=== PATIENT | male | born 1970 | race Caucasian/White ===

== ENCOUNTER 2021-02-06 09:40 | Inpatient (IN) | payer OTHER ==
[~2021-02-06 09:40] MED LIST: PROPOFOL 200 MG/20 ML VIAL ONE; Rocuronium Bromide 10 MG/ML (10ML VIAL) ONE
[2021-02-06] MEDS ORDERED: Dexamethasone 10 MG/ML VIAL ONE (10:07)
[2021-02-06] MEDS ORDERED: Iopamidol-370 76% 500 ML 1 ML ONE (10:43)
[2021-02-06 11:07] LABS: #Lymphocytes 0.4 thou/uL (1.20-3.40); #Monocytes 0.1 thou/uL (0.11-0.59); #Neutrophils 3.5 thou/uL (1.40-6.50); %Basophils 0.6 % (0.0-1.0); %Lymphocytes 10.8 % (21.0-51.0); %Monocytes 2.8 % (0.0-10.0); %Neutrophils 85.8 % (42.0-75.0); Hemoglobin 13.8 g/dL (14.0-18.0); Large Platelets SLIGHT; MDiff Complete? YES; Mean Corpuscular HGB CONC 34.8 g/dL (32.0-36.0); Mean Corpuscular Hemoglobin 29.8 pg (27.0-31.0); Mean Corpuscular Volume 85.6 fL (78.0-98.0); Mean Platelet Volume 10.4 fL (7.4-10.4); Platelet Count 60 thou/uL (130-400); Platelet Morphology Comment Appears Decreased; RBC Distribution Width 12.5 % (11.5-14.5); RBC Morphology Normal; Red Blood Cell (RBC) Count 4.63 mill/uL (4.70-6.10); White Blood Cell (WBC) Count 4.1 thou/uL (4.8-10.8)
[2021-02-06 11:23] LABS: ALT (SGPT) 41 U/L (8-55); AST (SGOT) 100 U/L (5-34); Albumin 3.3 g/dL (3.5-5.0); Alkaline Phosphatase 72 U/L (40-110); Anion Gap 11 mmol/L (10-20); BUN (Urea Nitrogen) 16 mg/dL (8.9-20.6); Bilirubin, Total 0.8 mg/dL (0.2-1.2); Calc. Creatinine Clearance 0 mL/min (70-130); Calcium 9.2 mg/dL (7.8-10.44); Carbon Dioxide 26 mmol/L (22-29); Chloride 101 mmol/L (98-107); Globulin 3.3 g/dL (2.4-3.5); Glucose 111 mg/dL (70-105); Potassium 3.7 mmol/L (3.5-5.1); Protein, Total 6.6 g/dL (6.0-8.3); Sodium 134 mmol/L (136-145)
[2021-02-06 11:48] LABS: SARS-CoV-2 NAA Rapid Test DETECTED (NotDetected)
[2021-02-06] MEDS ORDERED: Benzonatate 100 MG CAP PO PRN (12:07)
[2021-02-06] MEDS ORDERED: Albuterol Sulfate 2.5 mg/3 ml Neb NEB PRN (12:08)
[2021-02-06] MEDS ORDERED: HYDROcodone/Acetaminophen 5/325 mg Tablet PO PRN ×2 (12:08)
[2021-02-06] MEDS ORDERED: Senokot S 8.6-50 MG TAB PO PRN (12:08)
[2021-02-06] MEDS: Sodium Chloride 0.9% 1,000 ML IV SCH (12:57)
[2021-02-06 14:52] LABS: CRP (Inflammatory) 16.45 mg/dL (= or < 0.5); Magnesium 1.7 mg/dL (1.6-2.6)
[2021-02-06 15:33] LABS: HBCM Index 0.18 S/CO (0-0.79); HBSAg Index 0.25 S/CO (0-0.99); Hep A IgM AB Non-Reactive (NonReactive); Hep A IgM S/CO 0.12 S/CO (0-0.79); Hep B Surf Ag Non-Reactive S/CO (NonReactive); Hep C IgG Ab Non-Reactive (NonReactive); Hep C Index 0.14 S/CO (0-0.79); Hepatitis B Core IgM Abs Non-Reactive (NonReactive)
[2021-02-06 15:59] LABS: Acetaminophen Less than 6.0 mcg/mL (10.0-30.0); Alcohol Less than 10 mg/dL (Less than 10); Salicylate Less than 8.0 mg/dL (15.0-30.0)
[2021-02-06 16:15] LABS: Ferritin 2155.94 ng/mL (22-322)
[2021-02-06] MEDS ORDERED: Enoxaparin Sodium 40 MG/0.4 ML SYRINGE SC SCH (21:00)
[2021-02-06] MEDS: Lorazepam 2 MG/ML VIAL SLOW IVP PRN (21:23)
[2021-02-06] MEDS: Acetaminophen 325 MG TAB PO PRN (22:47)
[2021-02-06 23:58] LABS: Actual Bicarbonate (HCO3a) 26.6 mEq/L (22-28); Base Excess (BEa) -0.2 mEq/L (-2.0 to +3.0); CO2 Tension 51.7 mmHg (35.0-45.0); Calcium, Ionized (arterial) 1.32 mmol/L (1.12-1.30); Carboxyhemoglobin (COHb) 0.8 gm% (0.0-3.0); Hemoglobin (Hb) 14.5 g/dL (14.0-18.0); pH, Arterial 7.33 (7.35-7.45)
[2021-02-07] LABS: ALV-art Gradient 607.675 mmHg (0-20); O2 Tension (PaO2), arterial 40.7 mmHg (80.0-100.0)
[2021-02-07] MEDS: Sodium Chloride 0.9% 1,000 ML IV SCH ×2 (00:58→14:01)
[2021-02-07] MEDS ORDERED: Morphine 4 MG/ML VIAL SLOW IVP SCH (02:15)
[2021-02-07] MEDS: Dexamethasone 10 MG/ML VIAL SLOW IVP SCH ×2 (02:19→14:01)
[2021-02-07 02:44] LABS: #Lymphocytes 0.4 thou/uL (1.20-3.40); #Monocytes 0.1 thou/uL (0.11-0.59); #Neutrophils 4.7 thou/uL (1.40-6.50); %Lymphocytes 6.6 % (21.0-51.0); %Monocytes 2.8 % (0.0-10.0); %Neutrophils 90.6 % (42.0-75.0); Hemoglobin 14.1 g/dL (14.0-18.0); Mean Corpuscular HGB CONC 34.7 g/dL (32.0-36.0); Mean Corpuscular Hemoglobin 29.8 pg (27.0-31.0); Mean Corpuscular Volume 85.9 fL (78.0-98.0); Mean Platelet Volume 10.1 fL (7.4-10.4); Platelet Count 68 thou/uL (130-400); RBC Distribution Width 12.7 % (11.5-14.5); Red Blood Cell (RBC) Count 4.73 mill/uL (4.70-6.10); White Blood Cell (WBC) Count 5.2 thou/uL (4.8-10.8)
[2021-02-07 04:24] LABS: BUN (Urea Nitrogen) 19 mg/dL (8.9-20.6); Calc. Creatinine Clearance 128 mL/min (70-130); Carbon Dioxide 19 mmol/L (22-29); Chloride 107 mmol/L (98-107); Glucose 146 mg/dL (70-105); Potassium 4.2 mmol/L (3.5-5.1); Sodium 138 mmol/L (136-145)
[2021-02-07 04:50] LABS: Anion Gap 17 mmol/L (10-20)
[2021-02-07] MEDS: BARICITINIB 2 MG TAB PO SCH (08:21)
[2021-02-07] MEDS: Lorazepam 2 MG/ML VIAL SLOW IVP PRN ×2 (08:21→10:42)
[2021-02-07] MEDS: Zinc Sulfate 220 MG CAP PO SCH (08:21)
[2021-02-07] MEDS: Ascorbic Acid 500 mg Chewable Tablet PO SCH (08:22)
[2021-02-07] MEDS ORDERED: Dexamethasone 10 MG/ML VIAL SLOW IVP SCH (09:00)
[2021-02-07] MEDS ORDERED: Propofol 1,000 MG/100 ML VIAL IV ONE (11:16)
[2021-02-07] MEDS ORDERED: Fentanyl CADD 100 ML ONE (11:17)
[2021-02-07] MEDS: Fentanyl CADD 100 ML IV SCH (11:24)
[2021-02-07] MEDS: Propofol 1,000 MG/100 ML VIAL IV PRN ×3 (11:24→20:08)
[2021-02-07] MEDS ORDERED: Propofol BOLUS 1,000 MG/100 ML VIAL IV PRN (11:30)
[2021-02-07] MEDS ORDERED: Morphine 2 MG/ML VIAL SLOW IVP PRN (11:30)
[2021-02-07] MEDS ORDERED: Fentanyl BOLUS 250 ML IVPB PRN (11:30)
[2021-02-07 12:19] LABS: Bilirubin Negative (Negative); Blood, Urine 2+ (Negative); Clarity Clear (Clear); Glucose, Urine (Dipstick) Normal (Negative); Ketone, Urine Negative (Negative); Leukocyte Negative Leu/uL (Negative); Nitrite Negative (Negative); Protein, Urine (Dipstick) 70 mg/dL (Neg-Trace); RBC/HPF 0-3 HPF (0-3); Specific Gravity, Urine 1.032 (1.002-1.036); Squamous Epithelial 0-3 HPF (0-3); Urobilinogen Normal mg/dL (Less than 2)
[2021-02-07 12:20] LABS: Bacteria/HPF 1+ HPF (None Seen)
[2021-02-07 12:22] LABS: Amphetamine Not Detected (NotDetected); Barbiturates Screen Not Detected (NotDetected); Benzodiazepine Screen Detected (NotDetected); Cocaine Metabolite Screen Not Detected (NotDetected); Methadone Not Detected (NotDetected); Methamphetamine Not Detected (NotDetected); Opiate Screen Detected (NotDetected); Oxycodone Screen Not Detected (NotDetected); Phencyclidine (PCP) Not Detected (NotDetected); THC/Cannabinoid Screen Not Detected (NotDetected); Tricyclic Screen Not Detected (NotDetected); Urine Culture Reflex Yes Yes
[2021-02-07 12:27] LABS: Actual Bicarbonate (HCO3a) 24.4 mEq/L (22-28); Base Excess (BEa) 0.8 mEq/L (-2.0 to +3.0); Calcium, Ionized (arterial) 1.28 mmol/L (1.12-1.30); Carboxyhemoglobin (COHb) 0.6 gm% (0.0-3.0); Hemoglobin (Hb) 13.5 g/dL (14.0-18.0); O2 Tension (PaO2), arterial 51.4 mmHg (80.0-100.0); Potassium - ABG Lab 4.21 mmol/L (3.70-5.30); Puncture Site RBA; pH, Arterial 7.45 (7.35-7.45)
[2021-02-07] MEDS ORDERED: Rocuronium Bromide 50 MG/5 ML VIAL IVP SCH (12:30)
[2021-02-07] MEDS ORDERED: PROPOFOL 200 MG/20 ML VIAL IV SCH (12:30)
[2021-02-07] MEDS: Vecuronium 10 MG VIAL IV PRN (13:48)
[2021-02-07] MEDS: Pantoprazole 40 MG VIAL IVP SCH (20:08)
[2021-02-07] MEDS: methylPREDNISolone Sod Succ/PF 125 MG in Sodium Chloride 0.9% 250 ML 250 ML IVPB SCH (20:17)
[2021-02-07] MEDS: Enoxaparin Sodium 60 MG/0.6 ML SYRINGE SC SCH (22:20)
[2021-02-08] MEDS: Vecuronium 10 MG VIAL IV PRN ×9 (01:49→23:40)
[2021-02-08 06:40] LABS: ALT (SGPT) 32 U/L (8-55); AST (SGOT) 82 U/L (5-34); Albumin 2.8 g/dL (3.5-5.0); Alkaline Phosphatase 55 U/L (40-110); Anion Gap 13 mmol/L (10-20); BUN (Urea Nitrogen) 27 mg/dL (8.9-20.6); Bilirubin, Total 0.6 mg/dL (0.2-1.2); CRP (Inflammatory) 10.82 mg/dL (= or < 0.5); Calc. Creatinine Clearance 119 mL/min (70-130); Calcium 9.1 mg/dL (7.8-10.44); Carbon Dioxide 22 mmol/L (22-29); Chloride 110 mmol/L (98-107); Globulin 2.5 g/dL (2.4-3.5); Glucose 144 mg/dL (70-105); Potassium 4.3 mmol/L (3.5-5.1); Protein, Total 5.3 g/dL (6.0-8.3); Sodium 141 mmol/L (136-145)
[2021-02-08] MEDS ORDERED: Fentanyl CADD 100 ML ONE (07:14)
[2021-02-08] MEDS: Propofol 1,000 MG/100 ML VIAL IV PRN ×4 (07:18→21:47)
[2021-02-08] MEDS: Fentanyl CADD 100 ML IV SCH (07:18)
[2021-02-08 07:54] LABS: Band 21 % (5-11); Hemoglobin 11.8 g/dL (14.0-18.0); Lymphocytes 11 % (21-51); MDiff Complete? YES; Mean Corpuscular Hemoglobin 29.4 pg (27.0-31.0); Mean Corpuscular Volume 86.5 fL (78.0-98.0); Monocytes 3 % (0-10); Neutrophil 65 % (42-75); Platelet Count 80 thou/uL (130-400); Platelet Morphology Comment Appears Decreased; RBC Distribution Width 12.7 % (11.5-14.5); Red Blood Cell (RBC) Count 4.03 mill/uL (4.70-6.10); White Blood Cell (WBC) Count 4.2 thou/uL (4.8-10.8)
[2021-02-08] MEDS: Zinc Sulfate 220 MG CAP PO SCH (08:36)
[2021-02-08] MEDS: Enoxaparin Sodium 60 MG/0.6 ML SYRINGE SC SCH (08:36)
[2021-02-08] MEDS: BARICITINIB 2 MG TAB PO SCH (08:36)
[2021-02-08] MEDS: Ascorbic Acid 500 mg Chewable Tablet PO SCH (08:37)
[2021-02-08] MEDS: Pantoprazole 40 MG VIAL IVP SCH ×2 (08:39→21:27)
[2021-02-08] MEDS ORDERED: FLU VACC QS2021-22(6MOS UP)/PF 60 MCG/0.5 ML SYRINGE IM ONE (09:00)
[2021-02-08] MEDS: methylPREDNISolone Sod Succ/PF 125 MG in Sodium Chloride 0.9% 250 ML 250 ML IVPB SCH (19:17)
[2021-02-08] MEDS: Lorazepam 2 MG/ML VIAL SLOW IVP PRN (23:40)
[2021-02-09] MEDS: Vecuronium 10 MG VIAL IV PRN ×6 (01:18→20:47)
[2021-02-09] MEDS: Propofol 1,000 MG/100 ML VIAL IV PRN ×4 (01:54→20:48)
[2021-02-09] MEDS ORDERED: Fentanyl CADD 100 ML ONE ×2 (02:20→20:30)
[2021-02-09] MEDS: Fentanyl CADD 100 ML IV SCH ×2 (02:23→20:48)
[2021-02-09 04:33] LABS: Hemoglobin 11.1 g/dL (14.0-18.0); Mean Corpuscular HGB CONC 34.3 g/dL (32.0-36.0); Mean Corpuscular Hemoglobin 29.7 pg (27.0-31.0); Mean Corpuscular Volume 86.7 fL (78.0-98.0); Mean Platelet Volume 9.4 fL (7.4-10.4); Platelet Count 95 thou/uL (130-400); RBC Distribution Width 12.5 % (11.5-14.5); Red Blood Cell (RBC) Count 3.72 mill/uL (4.70-6.10); White Blood Cell (WBC) Count 3.3 thou/uL (4.8-10.8)
[2021-02-09 04:51] LABS: ALT (SGPT) 28 U/L (8-55); AST (SGOT) 59 U/L (5-34); Albumin 2.8 g/dL (3.5-5.0); Alkaline Phosphatase 51 U/L (40-110); Anion Gap 13 mmol/L (10-20); BUN (Urea Nitrogen) 33 mg/dL (8.9-20.6); Bilirubin, Total 0.5 mg/dL (0.2-1.2); CRP (Inflammatory) 5.62 mg/dL (= or < 0.5); Calc. Creatinine Clearance 115 mL/min (70-130); Calcium 8.9 mg/dL (7.8-10.44); Carbon Dioxide 25 mmol/L (22-29); Chloride 109 mmol/L (98-107); Globulin 2.5 g/dL (2.4-3.5); Glucose 160 mg/dL (70-105); Potassium 4.5 mmol/L (3.5-5.1); Protein, Total 5.3 g/dL (6.0-8.3); Sodium 142 mmol/L (136-145)
[2021-02-09 05:07] LABS: Band 10 % (5-11); Lymphocytes 7 % (21-51); MDiff Complete? YES; Monocytes 3 % (0-10); Neutrophil 80 % (42-75); Platelet Morphology Comment Appears Decreased
[2021-02-09 07:36] LABS: Actual Bicarbonate (HCO3a) 23.9 mEq/L (22-28); Base Excess (BEa) 0.1 mEq/L (-2.0 to +3.0); CO2 Tension 35.9 mmHg (35.0-45.0); Carboxyhemoglobin (COHb) 0.2 gm% (0.0-3.0); Hemoglobin (Hb) 11.3 g/dL (14.0-18.0); O2 Tension (PaO2), arterial 108.4 mmHg (80.0-100.0); Potassium - ABG Lab 4.31 mmol/L (3.70-5.30); pH, Arterial 7.44 (7.35-7.45)
[2021-02-09 07:38] LABS: ALV-art Gradient 203.225 mmHg (0-20); Puncture Site RBA
[2021-02-09] MEDS: Pantoprazole 40 MG VIAL IVP SCH ×2 (08:58→20:47)
[2021-02-09] MEDS: Zinc Sulfate 220 MG CAP PO SCH (08:58)
[2021-02-09] MEDS: Ascorbic Acid 500 mg Chewable Tablet PO SCH (08:58)
[2021-02-09] MEDS: BARICITINIB 2 MG TAB PO SCH (08:58)
[2021-02-09] MEDS ORDERED: Enoxaparin Sodium 60 MG/0.6 ML SYRINGE SC SCH (11:00)
[2021-02-09] MEDS ORDERED: Sterile Water 10 ML ONE (20:29)
[2021-02-09] MEDS: methylPREDNISolone Sod Succ/PF 125 MG in Sodium Chloride 0.9% 250 ML 250 ML IVPB SCH (20:46)
[2021-02-09] MEDS: Enoxaparin Sodium 60 MG/0.6 ML SYRINGE SC SCH (20:48)
[2021-02-10] MEDS: Vecuronium 10 MG VIAL IV PRN ×4 (01:24→12:11)
[2021-02-10] MEDS: Propofol 1,000 MG/100 ML VIAL IV PRN ×3 (03:50→17:57)
[2021-02-10] MEDS ORDERED: Sterile Water 10 ML ONE ×3 (03:52→11:52)
[2021-02-10 04:44] LABS: Hemoglobin 12.6 g/dL (14.0-18.0); Mean Corpuscular HGB CONC 34.1 g/dL (32.0-36.0); Mean Corpuscular Hemoglobin 29.1 pg (27.0-31.0); Mean Corpuscular Volume 85.3 fL (78.0-98.0); Mean Platelet Volume 9.6 fL (7.4-10.4); Platelet Count 119 thou/uL (130-400); RBC Distribution Width 12.3 % (11.5-14.5); Red Blood Cell (RBC) Count 4.33 mill/uL (4.70-6.10); White Blood Cell (WBC) Count 3.5 thou/uL (4.8-10.8)
[2021-02-10 05:07] LABS: ALT (SGPT) 32 U/L (8-55); AST (SGOT) 55 U/L (5-34); Albumin 3.1 g/dL (3.5-5.0); Alkaline Phosphatase 58 U/L (40-110); Anion Gap 14 mmol/L (10-20); BUN (Urea Nitrogen) 32 mg/dL (8.9-20.6); Bilirubin, Total 0.8 mg/dL (0.2-1.2); CRP (Inflammatory) 3.02 mg/dL (= or < 0.5); Calc. Creatinine Clearance 134 mL/min (70-130); Calcium 9.2 mg/dL (7.8-10.44); Carbon Dioxide 25 mmol/L (22-29); Chloride 109 mmol/L (98-107); Globulin 3.1 g/dL (2.4-3.5); Glucose 157 mg/dL (70-105); Potassium 4.7 mmol/L (3.5-5.1); Protein, Total 6.2 g/dL (6.0-8.3); Sodium 143 mmol/L (136-145)
[2021-02-10 05:20] LABS: Band 14 % (5-11); Lymphocytes 10 % (21-51); MDiff Complete? YES; Monocytes 2 % (0-10); Neutrophil 74 % (42-75); Platelet Morphology Comment Appears Decreased
[2021-02-10 08:39] LABS: Actual Bicarbonate (HCO3a) 22.1 mEq/L (22-28); Base Excess (BEa) -1.5 mEq/L (-2.0 to +3.0); CO2 Tension 33.9 mmHg (35.0-45.0); Carboxyhemoglobin (COHb) 0.3 gm% (0.0-3.0); Hemoglobin (Hb) 13.6 g/dL (14.0-18.0); O2 Tension (PaO2), arterial 74.7 mmHg (80.0-100.0); pH, Arterial 7.43 (7.35-7.45)
[2021-02-10 08:47] LABS: ALV-art Gradient 168.125 mmHg (0-20); Puncture Site LRA
[2021-02-10] MEDS: Enoxaparin Sodium 60 MG/0.6 ML SYRINGE SC SCH ×2 (09:05→20:07)
[2021-02-10] MEDS: Pantoprazole 40 MG VIAL IVP SCH ×2 (09:06→20:07)
[2021-02-10] MEDS: BARICITINIB 2 MG TAB PO SCH (09:06)
[2021-02-10] MEDS: Zinc Sulfate 220 MG CAP PO SCH (09:06)
[2021-02-10] MEDS: Ascorbic Acid 500 mg Chewable Tablet PO SCH (09:06)
[2021-02-10] MEDS: Lorazepam 2 MG/ML VIAL SLOW IVP PRN ×3 (10:21→19:45)
[2021-02-10] MEDS ORDERED: Fentanyl CADD 100 ML ONE (16:07)
[2021-02-10] MEDS: Fentanyl CADD 100 ML IV SCH (16:12)
[2021-02-10] MEDS: methylPREDNISolone Sod Succ/PF 125 MG in Sodium Chloride 0.9% 250 ML 250 ML IVPB SCH (19:16)
[2021-02-11] MEDS: Propofol 1,000 MG/100 ML VIAL IV PRN ×4 (00:08→21:52)
[2021-02-11] MEDS ORDERED: Fentanyl CADD 100 ML ONE ×3 (03:34→23:36)
[2021-02-11] MEDS: Fentanyl CADD 100 ML IV SCH ×3 (03:45→23:42)
[2021-02-11 04:51] LABS: Hemoglobin 11.8 g/dL (14.0-18.0); Mean Corpuscular HGB CONC 34.3 g/dL (32.0-36.0); Mean Corpuscular Hemoglobin 29.9 pg (27.0-31.0); Mean Platelet Volume 8.9 fL (7.4-10.4); Platelet Count 135 thou/uL (130-400); RBC Distribution Width 12.3 % (11.5-14.5); Red Blood Cell (RBC) Count 3.94 mill/uL (4.70-6.10); White Blood Cell (WBC) Count 5.1 thou/uL (4.8-10.8)
[2021-02-11 05:02] LABS: Lactic Acid 1.4 mmol/L (0.5-2.2)
[2021-02-11 05:03] LABS: Phosphorus 3.5 mg/dL (2.3-4.7)
[2021-02-11 05:04] LABS: ALT (SGPT) 40 U/L (8-55); AST (SGOT) 48 U/L (5-34); Albumin 2.9 g/dL (3.5-5.0); Alkaline Phosphatase 57 U/L (40-110); Anion Gap 10 mmol/L (10-20); BUN (Urea Nitrogen) 32 mg/dL (8.9-20.6); Bilirubin, Total 0.7 mg/dL (0.2-1.2); Calc. Creatinine Clearance 138 mL/min (70-130); Calcium 9.3 mg/dL (7.8-10.44); Carbon Dioxide 27 mmol/L (22-29); Chloride 111 mmol/L (98-107); Globulin 2.5 g/dL (2.4-3.5); Glucose 145 mg/dL (70-105); Magnesium 2.5 mg/dL (1.6-2.6); Potassium 4.9 mmol/L (3.5-5.1); Protein, Total 5.4 g/dL (6.0-8.3); Sodium 143 mmol/L (136-145)
[2021-02-11] MEDS: Lorazepam 2 MG/ML VIAL SLOW IVP PRN ×2 (05:33→19:35)
[2021-02-11 05:36] LABS: Band 9 % (5-11); Lymphocytes 6 % (21-51); MDiff Complete? YES; Monocytes 5 % (0-10); Neutrophil 80 % (42-75)
[2021-02-11] MEDS ORDERED: Propofol 1,000 MG/100 ML VIAL IV ONE (07:54)
[2021-02-11 08:32] LABS: Actual Bicarbonate (HCO3a) 23.2 mEq/L (22-28); Base Excess (BEa) -1.4 mEq/L (-2.0 to +3.0); Calcium, Ionized (arterial) 1.32 mmol/L (1.12-1.30); Carboxyhemoglobin (COHb) 0.6 gm% (0.0-3.0); Hemoglobin (Hb) 12.5 g/dL (14.0-18.0); O2 Tension (PaO2), arterial 40.9 mmHg (80.0-100.0); Potassium - ABG Lab 5.07 mmol/L (3.70-5.30); pH, Arterial 7.39 (7.35-7.45)
[2021-02-11 08:33] LABS: Puncture Site RR
[2021-02-11] MEDS: Pantoprazole 40 MG VIAL IVP SCH ×2 (08:58→21:01)
[2021-02-11] MEDS: Zinc Sulfate 220 MG CAP PO SCH (08:58)
[2021-02-11] MEDS: Enoxaparin Sodium 60 MG/0.6 ML SYRINGE SC SCH ×2 (08:58→21:01)
[2021-02-11] MEDS: Ascorbic Acid 500 mg Chewable Tablet PO SCH (08:58)
[2021-02-11] MEDS: BARICITINIB 2 MG TAB PO SCH (08:58)
[2021-02-11] MEDS: levETIRAcetam in NS 500 MG in Premix Bag 1 BAG IVPB SCH (13:38)
[2021-02-11] MEDS: methylPREDNISolone Sod Succ/PF 125 MG in Sodium Chloride 0.9% 250 ML 250 ML IVPB SCH (19:05)
[2021-02-12] MEDS: levETIRAcetam in NS 500 MG in Premix Bag 1 BAG IVPB SCH ×2 (00:33→13:03)
[2021-02-12] MEDS: Propofol 1,000 MG/100 ML VIAL IV PRN ×6 (01:36→18:25)
[2021-02-12] MEDS: Lorazepam 2 MG/ML VIAL SLOW IVP PRN ×2 (02:11→08:15)
[2021-02-12 04:25] LABS: #Lymphocytes 0.4 thou/uL (1.20-3.40); #Monocytes 0.4 thou/uL (0.11-0.59); #Neutrophils 5.7 thou/uL (1.40-6.50); %Eosinophils 0.5 % (0.0-10.0); %Lymphocytes 5.3 % (21.0-51.0); %Monocytes 6.7 % (0.0-10.0); %Neutrophils 87.4 % (42.0-75.0); Hemoglobin 11.5 g/dL (14.0-18.0); Mean Corpuscular HGB CONC 33.9 g/dL (32.0-36.0); Mean Corpuscular Hemoglobin 29.5 pg (27.0-31.0); Mean Corpuscular Volume 86.8 fL (78.0-98.0); Mean Platelet Volume 9.1 fL (7.4-10.4); Platelet Count 154 thou/uL (130-400); RBC Distribution Width 12.4 % (11.5-14.5); Red Blood Cell (RBC) Count 3.91 mill/uL (4.70-6.10); White Blood Cell (WBC) Count 6.5 thou/uL (4.8-10.8)
[2021-02-12 04:50] LABS: Phosphorus 2.7 mg/dL (2.3-4.7)
[2021-02-12 04:51] LABS: ALT (SGPT) 62 U/L (8-55); AST (SGOT) 76 U/L (5-34); Albumin 2.8 g/dL (3.5-5.0); Alkaline Phosphatase 56 U/L (40-110); Anion Gap 11 mmol/L (10-20); BUN (Urea Nitrogen) 30 mg/dL (8.9-20.6); Bilirubin, Total 0.7 mg/dL (0.2-1.2); Calc. Creatinine Clearance 128 mL/min (70-130); Carbon Dioxide 25 mmol/L (22-29); Chloride 110 mmol/L (98-107); Globulin 2.5 g/dL (2.4-3.5); Glucose 133 mg/dL (70-105); Magnesium 2.5 mg/dL (1.6-2.6); Potassium 4.5 mmol/L (3.5-5.1); Protein, Total 5.3 g/dL (6.0-8.3); Sodium 141 mmol/L (136-145)
[2021-02-12 06:43] LABS: Actual Bicarbonate (HCO3a) 23.5 mEq/L (22-28); Base Excess (BEa) 0.7 mEq/L (-2.0 to +3.0); CO2 Tension 31.7 mmHg (35.0-45.0); Calcium, Ionized (arterial) 1.25 mmol/L (1.12-1.30); Carboxyhemoglobin (COHb) 0.3 gm% (0.0-3.0); Hemoglobin (Hb) 11.8 g/dL (14.0-18.0); O2 Tension (PaO2), arterial 61.8 mmHg (80.0-100.0); Potassium - ABG Lab 4.22 mmol/L (3.70-5.30); pH, Arterial 7.49 (7.35-7.45)
[2021-02-12 06:46] LABS: ALV-art Gradient 183.775 mmHg (0-20); Puncture Site RRA
[2021-02-12] MEDS: Zinc Sulfate 220 MG CAP PO SCH (08:15)
[2021-02-12] MEDS: BARICITINIB 2 MG TAB PO SCH (08:15)
[2021-02-12] MEDS: Ascorbic Acid 500 mg Chewable Tablet PO SCH (08:15)
[2021-02-12] MEDS: Pantoprazole 40 MG VIAL IVP SCH (08:15)
[2021-02-12] MEDS: Enoxaparin Sodium 60 MG/0.6 ML SYRINGE SC SCH ×2 (08:43→20:33)
[2021-02-12] MEDS ORDERED: Fentanyl CADD 100 ML ONE ×2 (08:57→18:21)
[2021-02-12] MEDS: Fentanyl CADD 100 ML IV SCH ×2 (08:59→18:25)
[2021-02-12] MEDS ORDERED: FLU VACC QS2021-22(6MOS UP)/PF 60 MCG/0.5 ML SYRINGE IM ONE (09:00)
[2021-02-12] MEDS: methylPREDNISolone Sod Succ/PF 125 MG in Sodium Chloride 0.9% 250 ML 250 ML IVPB SCH (18:25)
[2021-02-12] MEDS: Pantoprazole 40 MG GRANULES PACKET PER TUBE SCH (20:33)
[2021-02-12] MEDS: Vecuronium 10 MG VIAL IV PRN (22:02)
[2021-02-13] MEDS: levETIRAcetam in NS 500 MG in Premix Bag 1 BAG IVPB SCH ×2 (00:53→13:46)
[2021-02-13] MEDS: Propofol 1,000 MG/100 ML VIAL IV PRN ×6 (00:53→21:21)
[2021-02-13] MEDS: Vecuronium 10 MG VIAL IV PRN ×7 (00:53→22:02)
[2021-02-13] MEDS ORDERED: Fentanyl CADD 100 ML ONE ×2 (04:04→14:18)
[2021-02-13] MEDS: Fentanyl CADD 100 ML IV SCH ×2 (04:08→14:22)
[2021-02-13 05:14] LABS: #Lymphocytes 0.4 thou/uL (1.20-3.40); #Monocytes 0.4 thou/uL (0.11-0.59); #Neutrophils 6.6 thou/uL (1.40-6.50); %Eosinophils 0.6 % (0.0-10.0); %Lymphocytes 5.1 % (21.0-51.0); %Monocytes 5.7 % (0.0-10.0); %Neutrophils 88.6 % (42.0-75.0); Mean Corpuscular HGB CONC 33.8 g/dL (32.0-36.0); Mean Corpuscular Hemoglobin 29.5 pg (27.0-31.0); Mean Corpuscular Volume 87.3 fL (78.0-98.0); Platelet Count 166 thou/uL (130-400); RBC Distribution Width 12.4 % (11.5-14.5); Red Blood Cell (RBC) Count 4.08 mill/uL (4.70-6.10); White Blood Cell (WBC) Count 7.4 thou/uL (4.8-10.8)
[2021-02-13 06:08] LABS: ALT (SGPT) 80 U/L (8-55); AST (SGOT) 63 U/L (5-34); Albumin 2.9 g/dL (3.5-5.0); Alkaline Phosphatase 60 U/L (40-110); Anion Gap 12 mmol/L (10-20); BUN (Urea Nitrogen) 23 mg/dL (8.9-20.6); Bilirubin, Total 0.6 mg/dL (0.2-1.2); Calc. Creatinine Clearance 155 mL/min (70-130); Carbon Dioxide 26 mmol/L (22-29); Chloride 105 mmol/L (98-107); Globulin 2.6 g/dL (2.4-3.5); Glucose 133 mg/dL (70-105); Magnesium 2.7 mg/dL (1.6-2.6); Phosphorus 3.9 mg/dL (2.3-4.7); Potassium 4.7 mmol/L (3.5-5.1); Protein, Total 5.5 g/dL (6.0-8.3); Sodium 138 mmol/L (136-145)
[2021-02-13 07:42] LABS: Actual Bicarbonate (HCO3a) 28.3 mEq/L (22-28); Base Excess (BEa) 1.3 mEq/L (-2.0 to +3.0); CO2 Tension 55.2 mmHg (35.0-45.0); Calcium, Ionized (arterial) 1.28 mmol/L (1.12-1.30); Carboxyhemoglobin (COHb) 0.1 gm% (0.0-3.0); Hemoglobin (Hb) 12.3 g/dL (14.0-18.0); O2 Tension (PaO2), arterial 84.7 mmHg (80.0-100.0); Potassium - ABG Lab 4.72 mmol/L (3.70-5.30); pH, Arterial 7.33 (7.35-7.45)
[2021-02-13 07:43] LABS: Puncture Site RRA
[2021-02-13] MEDS: BARICITINIB 2 MG TAB PO SCH (08:12)
[2021-02-13] MEDS: Ascorbic Acid 500 mg Chewable Tablet PO SCH (08:12)
[2021-02-13] MEDS: Pantoprazole 40 MG GRANULES PACKET PER TUBE SCH ×2 (08:13→21:21)
[2021-02-13] MEDS: Enoxaparin Sodium 60 MG/0.6 ML SYRINGE SC SCH ×2 (08:13→21:21)
[2021-02-13] MEDS: Zinc Sulfate 220 MG CAP PO SCH (08:13)
[2021-02-13] MEDS: Lorazepam 2 MG/ML VIAL SLOW IVP PRN ×3 (08:15→14:49)
[2021-02-13] MEDS: Metoclopramide HCl 10 MG/2 ML VIAL IVP SCH ×3 (11:36→21:22)
[2021-02-13] MEDS: methylPREDNISolone Sod Succ/PF 125 MG in Sodium Chloride 0.9% 250 ML 250 ML IVPB SCH (18:10)
[2021-02-14] MEDS ORDERED: Fentanyl CADD 100 ML ONE ×3 (00:05→18:36)
[2021-02-14] MEDS: Fentanyl CADD 100 ML IV SCH ×3 (00:11→18:39)
[2021-02-14] MEDS: levETIRAcetam in NS 500 MG in Premix Bag 1 BAG IVPB SCH ×2 (00:11→13:32)
[2021-02-14] MEDS: Propofol 1,000 MG/100 ML VIAL IV PRN ×8 (01:08→20:49)
[2021-02-14] MEDS: Metoclopramide HCl 10 MG/2 ML VIAL IVP SCH ×4 (03:39→20:49)
[2021-02-14] MEDS: Vecuronium 10 MG VIAL IV PRN ×4 (03:58→08:30)
[2021-02-14 04:37] LABS: #Eosinphils 0.1 thou/uL (0.0-0.7); #Lymphocytes 0.3 thou/uL (1.20-3.40); #Monocytes 0.4 thou/uL (0.11-0.59); #Neutrophils 6.7 thou/uL (1.40-6.50); %Eosinophils 0.9 % (0.0-10.0); %Lymphocytes 4.5 % (21.0-51.0); %Monocytes 5.3 % (0.0-10.0); %Neutrophils 89.3 % (42.0-75.0); Hemoglobin 12.2 g/dL (14.0-18.0); Mean Corpuscular HGB CONC 35.3 g/dL (32.0-36.0); Mean Corpuscular Hemoglobin 30.1 pg (27.0-31.0); Mean Corpuscular Volume 85.2 fL (78.0-98.0); Mean Platelet Volume 9.1 fL (7.4-10.4); Platelet Count 186 thou/uL (130-400); RBC Distribution Width 12.2 % (11.5-14.5); Red Blood Cell (RBC) Count 4.04 mill/uL (4.70-6.10); White Blood Cell (WBC) Count 7.5 thou/uL (4.8-10.8)
[2021-02-14 04:45] LABS: ALT (SGPT) 68 U/L (8-55); AST (SGOT) 41 U/L (5-34); Albumin 2.8 g/dL (3.5-5.0); Alkaline Phosphatase 62 U/L (40-110); Anion Gap 12 mmol/L (10-20); BUN (Urea Nitrogen) 20 mg/dL (8.9-20.6); Bilirubin, Total 0.6 mg/dL (0.2-1.2); Calc. Creatinine Clearance 157 mL/min (70-130); Calcium 8.8 mg/dL (7.8-10.44); Carbon Dioxide 27 mmol/L (22-29); Chloride 102 mmol/L (98-107); Globulin 2.6 g/dL (2.4-3.5); Glucose 124 mg/dL (70-105); Magnesium 2.5 mg/dL (1.6-2.6); Phosphorus 2.4 mg/dL (2.3-4.7); Potassium 4.5 mmol/L (3.5-5.1); Protein, Total 5.4 g/dL (6.0-8.3); Sodium 136 mmol/L (136-145)
[2021-02-14 07:47] LABS: Actual Bicarbonate (HCO3a) 29.5 mEq/L (22-28); Base Excess (BEa) 5.3 mEq/L (-2.0 to +3.0); CO2 Tension 41.6 mmHg (35.0-45.0); Calcium, Ionized (arterial) 1.25 mmol/L (1.12-1.30); Carboxyhemoglobin (COHb) 0.3 gm% (0.0-3.0); Hemoglobin (Hb) 12.2 g/dL (14.0-18.0); O2 Tension (PaO2), arterial 62.9 mmHg (80.0-100.0); Potassium - ABG Lab 4.35 mmol/L (3.70-5.30); pH, Arterial 7.47 (7.35-7.45)
[2021-02-14 07:48] LABS: Puncture Site RRA
[2021-02-14] MEDS: Enoxaparin Sodium 60 MG/0.6 ML SYRINGE SC SCH ×2 (09:31→20:49)
[2021-02-14] MEDS: Ascorbic Acid 500 mg Chewable Tablet PO SCH (09:32)
[2021-02-14] MEDS: BARICITINIB 2 MG TAB PO SCH (09:32)
[2021-02-14] MEDS: Zinc Sulfate 220 MG CAP PO SCH (09:32)
[2021-02-14] MEDS: Pantoprazole 40 MG GRANULES PACKET PER TUBE SCH ×2 (09:32→20:49)
[2021-02-14] MEDS: Lorazepam 2 MG/ML VIAL SLOW IVP PRN ×2 (13:50→19:03)
[2021-02-14] MEDS: methylPREDNISolone Sod Succ/PF 125 MG in Sodium Chloride 0.9% 250 ML 250 ML IVPB SCH (16:29)
[2021-02-15] MEDS: Propofol 1,000 MG/100 ML VIAL IV PRN ×7 (00:26→21:13)
[2021-02-15] MEDS: levETIRAcetam in NS 500 MG in Premix Bag 1 BAG IVPB SCH ×2 (01:36→13:16)
[2021-02-15] MEDS: Metoclopramide HCl 10 MG/2 ML VIAL IVP SCH ×4 (02:45→21:09)
[2021-02-15 04:06] LABS: #Lymphocytes 0.3 thou/uL (1.20-3.40); #Monocytes 0.4 thou/uL (0.11-0.59); #Neutrophils 6.9 thou/uL (1.40-6.50); %Basophils 0.2 % (0.0-1.0); %Eosinophils 0.4 % (0.0-10.0); %Lymphocytes 3.9 % (21.0-51.0); %Monocytes 5.6 % (0.0-10.0); %Neutrophils 89.9 % (42.0-75.0); Hemoglobin 12.2 g/dL (14.0-18.0); Mean Corpuscular HGB CONC 34.1 g/dL (32.0-36.0); Mean Corpuscular Hemoglobin 29.7 pg (27.0-31.0); Mean Platelet Volume 9.3 fL (7.4-10.4); Platelet Count 177 thou/uL (130-400); RBC Distribution Width 12.4 % (11.5-14.5); Red Blood Cell (RBC) Count 4.09 mill/uL (4.70-6.10); White Blood Cell (WBC) Count 7.7 thou/uL (4.8-10.8)
[2021-02-15] MEDS ORDERED: Fentanyl CADD 100 ML ONE ×2 (04:25→14:31)
[2021-02-15] MEDS: Fentanyl CADD 100 ML IV SCH ×2 (04:28→14:35)
[2021-02-15 04:35] LABS: ALT (SGPT) 54 U/L (8-55); AST (SGOT) 34 U/L (5-34); Albumin 2.9 g/dL (3.5-5.0); Alkaline Phosphatase 61 U/L (40-110); Anion Gap 11 mmol/L (10-20); BUN (Urea Nitrogen) 22 mg/dL (8.9-20.6); Bilirubin, Total 0.5 mg/dL (0.2-1.2); Calc. Creatinine Clearance 157 mL/min (70-130); Carbon Dioxide 29 mmol/L (22-29); Chloride 102 mmol/L (98-107); Globulin 2.5 g/dL (2.4-3.5); Glucose 123 mg/dL (70-105); Magnesium 2.5 mg/dL (1.6-2.6); Potassium 4.5 mmol/L (3.5-5.1); Protein, Total 5.4 g/dL (6.0-8.3); Sodium 137 mmol/L (136-145)
[2021-02-15 05:02] LABS: Phosphorus 3.5 mg/dL (2.3-4.7)
[2021-02-15 07:28] LABS: Actual Bicarbonate (HCO3a) 28.2 mEq/L (22-28); Base Excess (BEa) 2.7 mEq/L (-2.0 to +3.0); Calcium, Ionized (arterial) 1.29 mmol/L (1.12-1.30); Carboxyhemoglobin (COHb) 0.4 gm% (0.0-3.0); Hemoglobin (Hb) 12.8 g/dL (14.0-18.0); O2 Tension (PaO2), arterial 72.2 mmHg (80.0-100.0); Potassium - ABG Lab 4.86 mmol/L (3.70-5.30)
[2021-02-15 07:36] LABS: Puncture Site RRA
[2021-02-15] MEDS: Zinc Sulfate 220 MG CAP PO SCH (09:58)
[2021-02-15] MEDS: Ascorbic Acid 500 mg Chewable Tablet PO SCH (09:59)
[2021-02-15] MEDS: BARICITINIB 2 MG TAB PO SCH (09:59)
[2021-02-15] MEDS: Enoxaparin Sodium 60 MG/0.6 ML SYRINGE SC SCH ×2 (09:59→21:08)
[2021-02-15] MEDS: Pantoprazole 40 MG GRANULES PACKET PER TUBE SCH ×2 (09:59→21:08)
[2021-02-15] MEDS: Lorazepam 2 MG/ML VIAL SLOW IVP PRN (14:35)
[2021-02-15] MEDS: methylPREDNISolone Sod Succ/PF 125 MG in Sodium Chloride 0.9% 250 ML 250 ML IVPB SCH (21:07)
[2021-02-16] MEDS: levETIRAcetam in NS 500 MG in Premix Bag 1 BAG IVPB SCH ×2 (00:29→11:52)
[2021-02-16] MEDS ORDERED: Fentanyl CADD 100 ML ONE ×3 (00:43→23:30)
[2021-02-16] MEDS: Fentanyl CADD 100 ML IV SCH ×2 (00:46→23:36)
[2021-02-16] MEDS: Propofol 1,000 MG/100 ML VIAL IV PRN ×7 (01:02→21:56)
[2021-02-16] MEDS: Lorazepam 2 MG/ML VIAL SLOW IVP PRN ×7 (01:02→21:56)
[2021-02-16] MEDS: Metoclopramide HCl 10 MG/2 ML VIAL IVP SCH ×4 (03:49→20:12)
[2021-02-16 05:06] LABS: #Lymphocytes 0.4 thou/uL (1.20-3.40); #Monocytes 0.7 thou/uL (0.11-0.59); #Neutrophils 9.7 thou/uL (1.40-6.50); %Eosinophils 0.4 % (0.0-10.0); %Lymphocytes 3.3 % (21.0-51.0); %Monocytes 6.8 % (0.0-10.0); %Neutrophils 89.6 % (42.0-75.0); Hemoglobin 11.9 g/dL (14.0-18.0); Mean Corpuscular Hemoglobin 30.2 pg (27.0-31.0); Mean Corpuscular Volume 86.3 fL (78.0-98.0); Mean Platelet Volume 9.2 fL (7.4-10.4); Platelet Count 186 thou/uL (130-400); RBC Distribution Width 12.3 % (11.5-14.5); Red Blood Cell (RBC) Count 3.92 mill/uL (4.70-6.10); White Blood Cell (WBC) Count 10.8 thou/uL (4.8-10.8)
[2021-02-16 05:23] LABS: Phosphorus 3.6 mg/dL (2.3-4.7)
[2021-02-16 05:29] LABS: ALT (SGPT) 48 U/L (8-55); AST (SGOT) 43 U/L (5-34); Albumin 2.8 g/dL (3.5-5.0); Alkaline Phosphatase 62 U/L (40-110); Anion Gap 9 mmol/L (10-20); BUN (Urea Nitrogen) 24 mg/dL (8.9-20.6); Bilirubin, Total 0.5 mg/dL (0.2-1.2); Calc. Creatinine Clearance 159 mL/min (70-130); Calcium 9.3 mg/dL (7.8-10.44); Carbon Dioxide 32 mmol/L (22-29); Chloride 103 mmol/L (98-107); Globulin 2.5 g/dL (2.4-3.5); Glucose 111 mg/dL (70-105); Magnesium 2.6 mg/dL (1.6-2.6); Potassium 4.9 mmol/L (3.5-5.1); Protein, Total 5.3 g/dL (6.0-8.3); Sodium 139 mmol/L (136-145)
[2021-02-16] MEDS: Pantoprazole 40 MG GRANULES PACKET PER TUBE SCH ×2 (07:27→20:13)
[2021-02-16] MEDS: BARICITINIB 2 MG TAB PO SCH (07:27)
[2021-02-16] MEDS: Ascorbic Acid 500 mg Chewable Tablet PO SCH (07:28)
[2021-02-16] MEDS: Zinc Sulfate 220 MG CAP PO SCH (07:28)
[2021-02-16] MEDS: Enoxaparin Sodium 60 MG/0.6 ML SYRINGE SC SCH ×2 (07:28→20:12)
[2021-02-16 07:50] LABS: Actual Bicarbonate (HCO3a) 29.9 mEq/L (22-28); Base Excess (BEa) 5.1 mEq/L (-2.0 to +3.0); CO2 Tension 44.8 mmHg (35.0-45.0); Calcium, Ionized (arterial) 1.24 mmol/L (1.12-1.30); Carboxyhemoglobin (COHb) 0.7 gm% (0.0-3.0); Hemoglobin (Hb) 12.7 g/dL (14.0-18.0); Potassium - ABG Lab 4.53 mmol/L (3.70-5.30); pH, Arterial 7.44 (7.35-7.45)
[2021-02-16 08:13] LABS: O2 Tension (PaO2), arterial 42.9 mmHg (80.0-100.0); Puncture Site RRA
[2021-02-16] MEDS: methylPREDNISolone Sod Succ/PF 125 MG in Sodium Chloride 0.9% 250 ML 250 ML IVPB SCH (18:13)
[2021-02-17] MEDS: Lorazepam 2 MG/ML VIAL SLOW IVP PRN ×5 (00:27→15:05)
[2021-02-17] MEDS ORDERED: Simethicone Chewable 80 MG TAB PO PRN (01:19)
[2021-02-17] MEDS: Propofol 1,000 MG/100 ML VIAL IV PRN ×5 (01:48→15:06)
[2021-02-17] MEDS: levETIRAcetam in NS 500 MG in Premix Bag 1 BAG IVPB SCH (02:07)
[2021-02-17] MEDS: Metoclopramide HCl 10 MG/2 ML VIAL IVP SCH ×4 (03:43→20:13)
[2021-02-17 04:12] LABS: #Lymphocytes 0.3 thou/uL (1.20-3.40); #Monocytes 0.4 thou/uL (0.11-0.59); #Neutrophils 9.4 thou/uL (1.40-6.50); %Eosinophils 0.3 % (0.0-10.0); %Lymphocytes 2.9 % (21.0-51.0); %Monocytes 4.2 % (0.0-10.0); %Neutrophils 92.6 % (42.0-75.0); Hemoglobin 11.7 g/dL (14.0-18.0); Mean Corpuscular HGB CONC 33.2 g/dL (32.0-36.0); Mean Corpuscular Hemoglobin 28.8 pg (27.0-31.0); Mean Corpuscular Volume 86.7 fL (78.0-98.0); Mean Platelet Volume 9.3 fL (7.4-10.4); Platelet Count 183 thou/uL (130-400); RBC Distribution Width 12.5 % (11.5-14.5); Red Blood Cell (RBC) Count 4.09 mill/uL (4.70-6.10); White Blood Cell (WBC) Count 10.1 thou/uL (4.8-10.8)
[2021-02-17 04:39] LABS: Anion Gap 12 mmol/L (10-20); BUN (Urea Nitrogen) 21 mg/dL (8.9-20.6); Calc. Creatinine Clearance 172 mL/min (70-130); Carbon Dioxide 29 mmol/L (22-29); Chloride 100 mmol/L (98-107); Glucose 119 mg/dL (70-105); Potassium 4.6 mmol/L (3.5-5.1); Sodium 136 mmol/L (136-145)
[2021-02-17 07:23] LABS: Actual Bicarbonate (HCO3a) 32.2 mEq/L (22-28); Base Excess (BEa) 8.9 mEq/L (-2.0 to +3.0); Calcium, Ionized (arterial) 1.24 mmol/L (1.12-1.30); Carboxyhemoglobin (COHb) 0.3 gm% (0.0-3.0); Hemoglobin (Hb) 12.4 g/dL (14.0-18.0); Potassium - ABG Lab 4.39 mmol/L (3.70-5.30); pH, Arterial 7.53 (7.35-7.45)
[2021-02-17 07:24] LABS: O2 Tension (PaO2), arterial 51.3 mmHg (80.0-100.0); Puncture Site RRA
[2021-02-17] MEDS: Zinc Sulfate 220 MG CAP PO SCH (07:33)
[2021-02-17] MEDS: Pantoprazole 40 MG GRANULES PACKET PER TUBE SCH ×2 (07:33→20:13)
[2021-02-17] MEDS: Enoxaparin Sodium 60 MG/0.6 ML SYRINGE SC SCH ×2 (07:33→20:13)
[2021-02-17] MEDS: BARICITINIB 2 MG TAB PO SCH (07:33)
[2021-02-17] MEDS: Ascorbic Acid 500 mg Chewable Tablet PO SCH (07:33)
[2021-02-17] MEDS ORDERED: Fentanyl CADD 100 ML ONE (11:09)
[2021-02-17] MEDS: Fentanyl CADD 100 ML IV SCH (11:11)
[2021-02-17] MEDS: levETIRAcetam 500 MG in Sodium Chloride 0.9% 100 ML IVPB SCH (12:45)
[2021-02-17] MEDS: methylPREDNISolone Sod Succ/PF 125 MG in Sodium Chloride 0.9% 250 ML 250 ML IVPB SCH (15:58)
[2021-02-18] MEDS ORDERED: Fentanyl CADD 100 ML ONE ×2 (00:33→23:51)
[2021-02-18] MEDS: Fentanyl CADD 100 ML IV SCH ×2 (00:39→23:59)
[2021-02-18] MEDS: Propofol 1,000 MG/100 ML VIAL IV PRN ×5 (01:17→17:35)
[2021-02-18] MEDS: levETIRAcetam 500 MG in Sodium Chloride 0.9% 100 ML IVPB SCH ×2 (01:30→11:22)
[2021-02-18] MEDS: Metoclopramide HCl 10 MG/2 ML VIAL IVP SCH ×4 (03:13→20:06)
[2021-02-18 03:54] LABS: #Lymphocytes 0.4 thou/uL (1.20-3.40); #Monocytes 0.6 thou/uL (0.11-0.59); #Neutrophils 8.6 thou/uL (1.40-6.50); %Basophils 0.2 % (0.0-1.0); %Eosinophils 0.3 % (0.0-10.0); %Lymphocytes 4.2 % (21.0-51.0); %Monocytes 5.7 % (0.0-10.0); %Neutrophils 89.7 % (42.0-75.0); Hemoglobin 12.8 g/dL (14.0-18.0); Mean Corpuscular Hemoglobin 29.5 pg (27.0-31.0); Mean Corpuscular Volume 86.9 fL (78.0-98.0); Mean Platelet Volume 9.6 fL (7.4-10.4); Platelet Count 174 thou/uL (130-400); RBC Distribution Width 12.7 % (11.5-14.5); Red Blood Cell (RBC) Count 4.33 mill/uL (4.70-6.10); White Blood Cell (WBC) Count 9.6 thou/uL (4.8-10.8)
[2021-02-18 04:19] LABS: Anion Gap 11 mmol/L (10-20); BUN (Urea Nitrogen) 22 mg/dL (8.9-20.6); Calc. Creatinine Clearance 0 mL/min (70-130); Calcium 9.2 mg/dL (7.8-10.44); Carbon Dioxide 29 mmol/L (22-29); Chloride 102 mmol/L (98-107); Glucose 132 mg/dL (70-105); Potassium 4.7 mmol/L (3.5-5.1); Sodium 137 mmol/L (136-145)
[2021-02-18 06:52] LABS: Base Excess (BEa) 3.8 mEq/L (-2.0 to +3.0); CO2 Tension 36.3 mmHg (35.0-45.0); Calcium, Ionized (arterial) 1.27 mmol/L (1.12-1.30); Carboxyhemoglobin (COHb) 0.1 gm% (0.0-3.0); Hemoglobin (Hb) 13.3 g/dL (14.0-18.0); O2 Tension (PaO2), arterial 70.2 mmHg (80.0-100.0); Potassium - ABG Lab 4.71 mmol/L (3.70-5.30); pH, Arterial 7.49 (7.35-7.45)
[2021-02-18 06:54] LABS: ALV-art Gradient 240.925 mmHg (0-20); Puncture Site RRA
[2021-02-18] MEDS: BARICITINIB 2 MG TAB PO SCH (07:18)
[2021-02-18] MEDS: Zinc Sulfate 220 MG CAP PO SCH (07:18)
[2021-02-18] MEDS: Ascorbic Acid 500 mg Chewable Tablet PO SCH (07:18)
[2021-02-18] MEDS: Pantoprazole 40 MG GRANULES PACKET PER TUBE SCH ×2 (07:18→20:06)
[2021-02-18] MEDS: Enoxaparin Sodium 60 MG/0.6 ML SYRINGE SC SCH ×2 (07:19→20:05)
[2021-02-18] MEDS: Lorazepam 2 MG/ML VIAL SLOW IVP PRN ×4 (07:22→17:35)
[2021-02-18] MEDS: methylPREDNISolone Sod Succ/PF 125 MG in Sodium Chloride 0.9% 250 ML 250 ML IVPB SCH (17:06)
[2021-02-19] MEDS: levETIRAcetam in NS 500 MG in Premix Bag 1 BAG IVPB SCH ×2 (00:05→14:13)
[2021-02-19] MEDS: Propofol 1,000 MG/100 ML VIAL IV PRN ×3 (02:40→16:10)
[2021-02-19] MEDS: Metoclopramide HCl 10 MG/2 ML VIAL IVP SCH ×4 (02:40→22:24)
[2021-02-19] MEDS: Dexmedetomidine 1,000 MCG in Sodium Chloride 0.9% 250 ML 240 ML IVPB SCH ×2 (03:15→13:45)
[2021-02-19 03:55] LABS: Anion Gap 14 mmol/L (10-20); BUN (Urea Nitrogen) 24 mg/dL (8.9-20.6); Calc. Creatinine Clearance 133 mL/min (70-130); Calcium 9.4 mg/dL (7.8-10.44); Carbon Dioxide 27 mmol/L (22-29); Chloride 100 mmol/L (98-107); Glucose 122 mg/dL (70-105); Potassium 4.6 mmol/L (3.5-5.1); Sodium 136 mmol/L (136-145)
[2021-02-19 04:06] LABS: #Eosinphils 0.1 thou/uL (0.0-0.7); #Lymphocytes 0.3 thou/uL (1.20-3.40); #Monocytes 0.7 thou/uL (0.11-0.59); #Neutrophils 9.1 thou/uL (1.40-6.50); %Basophils 0.1 % (0.0-1.0); %Eosinophils 0.5 % (0.0-10.0); %Lymphocytes 3.3 % (21.0-51.0); %Neutrophils 89.1 % (42.0-75.0); Hemoglobin 13.3 g/dL (14.0-18.0); Mean Corpuscular HGB CONC 33.8 g/dL (32.0-36.0); Mean Corpuscular Hemoglobin 29.4 pg (27.0-31.0); Mean Corpuscular Volume 86.8 fL (78.0-98.0); Mean Platelet Volume 9.8 fL (7.4-10.4); Platelet Count 176 thou/uL (130-400); RBC Distribution Width 12.8 % (11.5-14.5); Red Blood Cell (RBC) Count 4.54 mill/uL (4.70-6.10); White Blood Cell (WBC) Count 10.2 thou/uL (4.8-10.8)
[2021-02-19 07:00] LABS: Actual Bicarbonate (HCO3a) 29.1 mEq/L (22-28); Base Excess (BEa) 5.8 mEq/L (-2.0 to +3.0); CO2 Tension 37.7 mmHg (35.0-45.0); Calcium, Ionized (arterial) 1.25 mmol/L (1.12-1.30); Carboxyhemoglobin (COHb) 0.5 gm% (0.0-3.0); O2 Tension (PaO2), arterial 63.2 mmHg (80.0-100.0); Potassium - ABG Lab 4.47 mmol/L (3.70-5.30); pH, Arterial 7.51 (7.35-7.45)
[2021-02-19 07:03] LABS: ALV-art Gradient 174.875 mmHg (0-20); Puncture Site LRA
[2021-02-19] MEDS: Enoxaparin Sodium 60 MG/0.6 ML SYRINGE SC SCH ×2 (09:33→21:00)
[2021-02-19] MEDS: Pantoprazole 40 MG GRANULES PACKET PER TUBE SCH ×2 (09:33→21:00)
[2021-02-19] MEDS: BARICITINIB 2 MG TAB PO SCH (09:33)
[2021-02-19] MEDS: Ascorbic Acid 500 mg Chewable Tablet PO SCH (09:34)
[2021-02-19] MEDS: Zinc Sulfate 220 MG CAP PO SCH (09:34)
[2021-02-19] MEDS ORDERED: Polyethylene Glycol 3350 17 GM Packet PO SCH (10:15)
[2021-02-19] MEDS: Lorazepam 2 MG/ML VIAL SLOW IVP PRN ×2 (15:28→22:24)
[2021-02-19] MEDS: methylPREDNISolone Sod Succ/PF 125 MG in Sodium Chloride 0.9% 250 ML 250 ML IVPB SCH (20:59)
[2021-02-19] MEDS: Senokot S 8.6-50 MG TAB PO SCH (21:00)
[2021-02-20] MEDS: levETIRAcetam in NS 500 MG in Premix Bag 1 BAG IVPB SCH ×2 (01:00→12:47)
[2021-02-20] MEDS: Metoclopramide HCl 10 MG/2 ML VIAL IVP SCH ×4 (03:51→21:51)
[2021-02-20] MEDS: Propofol 1,000 MG/100 ML VIAL IV PRN ×3 (03:51→16:36)
[2021-02-20] MEDS: Dexmedetomidine 1,000 MCG in Sodium Chloride 0.9% 250 ML 240 ML IVPB SCH ×3 (04:18→20:47)
[2021-02-20 04:53] LABS: #Eosinphils 0.1 thou/uL (0.0-0.7); #Lymphocytes 0.5 thou/uL (1.20-3.40); #Monocytes 0.7 thou/uL (0.11-0.59); #Neutrophils 6.6 thou/uL (1.40-6.50); %Basophils 0.1 % (0.0-1.0); %Eosinophils 1.4 % (0.0-10.0); %Lymphocytes 6.6 % (21.0-51.0); %Monocytes 8.5 % (0.0-10.0); %Neutrophils 83.5 % (42.0-75.0); Hemoglobin 14.1 g/dL (14.0-18.0); Mean Corpuscular HGB CONC 32.7 g/dL (32.0-36.0); Mean Corpuscular Hemoglobin 28.3 pg (27.0-31.0); Mean Corpuscular Volume 86.5 fL (78.0-98.0); Platelet Count 158 thou/uL (130-400); RBC Distribution Width 12.8 % (11.5-14.5); Red Blood Cell (RBC) Count 4.97 mill/uL (4.70-6.10); White Blood Cell (WBC) Count 7.9 thou/uL (4.8-10.8)
[2021-02-20 05:16] LABS: Anion Gap 12 mmol/L (10-20); BUN (Urea Nitrogen) 21 mg/dL (8.9-20.6); Calc. Creatinine Clearance 138 mL/min (70-130); Calcium 9.7 mg/dL (7.8-10.44); Carbon Dioxide 29 mmol/L (22-29); Chloride 100 mmol/L (98-107); Glucose 124 mg/dL (70-105); Potassium 4.7 mmol/L (3.5-5.1); Sodium 136 mmol/L (136-145)
[2021-02-20 07:07] LABS: Actual Bicarbonate (HCO3a) 25.5 mEq/L (22-28); Base Excess (BEa) 2.6 mEq/L (-2.0 to +3.0); CO2 Tension 34.2 mmHg (35.0-45.0); Calcium, Ionized (arterial) 1.25 mmol/L (1.12-1.30); Carboxyhemoglobin (COHb) 0.5 gm% (0.0-3.0); Hemoglobin (Hb) 14.3 g/dL (14.0-18.0); O2 Tension (PaO2), arterial 64.1 mmHg (80.0-100.0); Potassium - ABG Lab 4.44 mmol/L (3.70-5.30); pH, Arterial 7.49 (7.35-7.45)
[2021-02-20 07:31] LABS: Puncture Site RRA
[2021-02-20] MEDS: Enoxaparin Sodium 60 MG/0.6 ML SYRINGE SC SCH ×2 (09:40→21:45)
[2021-02-20] MEDS: Polyethylene Glycol 3350 17 GM Packet PO SCH (09:40)
[2021-02-20] MEDS: BARICITINIB 2 MG TAB PO SCH (09:40)
[2021-02-20] MEDS: Zinc Sulfate 220 MG CAP PO SCH (09:41)
[2021-02-20] MEDS: Acetaminophen 325 MG TAB PO PRN (09:41)
[2021-02-20] MEDS: Pantoprazole 40 MG GRANULES PACKET PER TUBE SCH ×2 (09:41→21:47)
[2021-02-20] MEDS: Senokot S 8.6-50 MG TAB PO SCH ×2 (09:41→21:48)
[2021-02-20] MEDS: Ascorbic Acid 500 mg Chewable Tablet PO SCH (09:42)
[2021-02-20] MEDS ORDERED: fentaNYL 75 mcg/hour Patch TD SCH ×2 (09:45→22:00)
[2021-02-20] MEDS: Lorazepam 2 MG/ML VIAL SLOW IVP PRN (13:22)
[2021-02-20] MEDS ORDERED: Piperacillin/Tazobactam 3.375 GM in Sodium Chloride 0.9% 100 ML IVPB SCH ×2 (16:30→18:30)
[2021-02-20] MEDS: Acetaminophen 650 MG Suppository PR PRN (16:36)
[2021-02-20 17:14] LABS: Bilirubin Negative (Negative); Blood, Urine Negative (Negative); Clarity Clear (Clear); Glucose, Urine (Dipstick) Normal (Negative); Ketone, Urine Negative (Negative); Leukocyte Negative Leu/uL (Negative); Nitrite Negative (Negative); Protein, Urine (Dipstick) Negative (Neg-Trace); Specific Gravity, Urine 1.027 (1.002-1.036); Urobilinogen Normal mg/dL (Less than 2)
[2021-02-20] MEDS ORDERED: VANCOMYCIN 2 GRAM/400 ML BAG 2 GM in Premix Bag 1 BAG IVPB SCH (20:00)
[2021-02-20] MEDS: methylPREDNISolone Sod Succ/PF 125 MG in Sodium Chloride 0.9% 250 ML 250 ML IVPB SCH (21:50)
[2021-02-21] MEDS: Piperacillin/Tazobactam 3.375 GM in Sodium Chloride 0.9% 100 ML IVPB SCH ×3 (00:03→14:52)
[2021-02-21] MEDS: levETIRAcetam in NS 500 MG in Premix Bag 1 BAG IVPB SCH ×2 (00:03→12:27)
[2021-02-21] MEDS: Propofol 1,000 MG/100 ML VIAL IV PRN ×4 (00:31→19:40)
[2021-02-21] MEDS: Metoclopramide HCl 10 MG/2 ML VIAL IVP SCH ×4 (03:03→21:25)
[2021-02-21 03:44] LABS: #Basophils 0.1 thou/uL (0.0-0.2); #Eosinphils 0.1 thou/uL (0.0-0.7); #Lymphocytes 0.6 thou/uL (1.20-3.40); #Neutrophils 11.1 thou/uL (1.40-6.50); %Basophils 0.5 % (0.0-1.0); %Eosinophils 0.4 % (0.0-10.0); %Neutrophils 86.1 % (42.0-75.0); Hemoglobin 14.1 g/dL (14.0-18.0); Mean Corpuscular HGB CONC 35.5 g/dL (32.0-36.0); Mean Corpuscular Hemoglobin 30.7 pg (27.0-31.0); Mean Corpuscular Volume 86.3 fL (78.0-98.0); Mean Platelet Volume 9.8 fL (7.4-10.4); Platelet Count 144 thou/uL (130-400); RBC Distribution Width 12.8 % (11.5-14.5); Red Blood Cell (RBC) Count 4.61 mill/uL (4.70-6.10); White Blood Cell (WBC) Count 12.9 thou/uL (4.8-10.8)
[2021-02-21] MEDS: Dexmedetomidine 1,000 MCG in Sodium Chloride 0.9% 250 ML 240 ML IVPB SCH ×3 (03:55→20:50)
[2021-02-21 04:35] LABS: Phosphorus 3.6 mg/dL (2.3-4.7)
[2021-02-21 04:40] LABS: Anion Gap 13 mmol/L (10-20); BUN (Urea Nitrogen) 22 mg/dL (8.9-20.6); Calc. Creatinine Clearance 149 mL/min (70-130); Calcium 9.5 mg/dL (7.8-10.44); Carbon Dioxide 24 mmol/L (22-29); Chloride 103 mmol/L (98-107); Glucose 115 mg/dL (70-105); Magnesium 2.2 mg/dL (1.6-2.6); Potassium 4.4 mmol/L (3.5-5.1); Sodium 136 mmol/L (136-145)
[2021-02-21] MEDS: Acetaminophen 650 MG Suppository PR PRN ×2 (08:36→14:53)
[2021-02-21] MEDS ORDERED: Sulfameth/Trimethoprim DS 800-160mg TAB PO SCH (09:00)
[2021-02-21] MEDS ORDERED: Methylnaltrexone 12 MG/0.6 ML VIAL SC SCH (09:30)
[2021-02-21] MEDS: Enoxaparin Sodium 60 MG/0.6 ML SYRINGE SC SCH ×2 (09:59→21:25)
[2021-02-21] MEDS: Senokot S 8.6-50 MG TAB PO SCH ×2 (09:59→21:25)
[2021-02-21] MEDS: Polyethylene Glycol 3350 17 GM Packet PO SCH (09:59)
[2021-02-21] MEDS: Vancomycin 1.5 GRAM/300 ML BAG 1.5 GM in Premix Bag 1 BAG IVPB SCH ×2 (09:59→21:26)
[2021-02-21] MEDS: Ascorbic Acid 500 mg Chewable Tablet PO SCH (09:59)
[2021-02-21] MEDS: Pantoprazole 40 MG GRANULES PACKET PER TUBE SCH ×2 (09:59→21:25)
[2021-02-21] MEDS: Fentanyl 100 MCG/2 ML VIAL SLOW IVP PRN (09:59)
[2021-02-21] MEDS: Zinc Sulfate 220 MG CAP PO SCH (09:59)
[2021-02-21] MEDS: Lorazepam 2 MG/ML VIAL SLOW IVP PRN ×2 (10:01→14:53)
[2021-02-21] MEDS: methylPREDNISolone Sod Succ/PF 125 MG in Sodium Chloride 0.9% 250 ML 250 ML IVPB SCH (21:27)
[2021-02-22] MEDS: levETIRAcetam in NS 500 MG in Premix Bag 1 BAG IVPB SCH ×2 (00:42→12:07)
[2021-02-22] MEDS: Piperacillin/Tazobactam 3.375 GM in Sodium Chloride 0.9% 100 ML IVPB SCH ×4 (00:43→23:59)
[2021-02-22] MEDS: Propofol 1,000 MG/100 ML VIAL IV PRN ×4 (01:10→19:30)
[2021-02-22] MEDS: Dexmedetomidine 1,000 MCG in Sodium Chloride 0.9% 250 ML 240 ML IVPB SCH ×3 (03:27→19:51)
[2021-02-22] MEDS: Metoclopramide HCl 10 MG/2 ML VIAL IVP SCH ×4 (03:27→20:50)
[2021-02-22 04:09] LABS: #Eosinphils 0.1 thou/uL (0.0-0.7); #Lymphocytes 0.8 thou/uL (1.20-3.40); #Monocytes 0.9 thou/uL (0.11-0.59); #Neutrophils 8.9 thou/uL (1.40-6.50); %Basophils 0.4 % (0.0-1.0); %Eosinophils 1.2 % (0.0-10.0); %Lymphocytes 7.5 % (21.0-51.0); %Monocytes 8.5 % (0.0-10.0); %Neutrophils 82.4 % (42.0-75.0); Hemoglobin 13.6 g/dL (14.0-18.0); Mean Corpuscular HGB CONC 33.9 g/dL (32.0-36.0); Mean Corpuscular Hemoglobin 29.3 pg (27.0-31.0); Mean Corpuscular Volume 86.5 fL (78.0-98.0); Mean Platelet Volume 9.9 fL (7.4-10.4); Platelet Count 122 thou/uL (130-400); Red Blood Cell (RBC) Count 4.63 mill/uL (4.70-6.10); White Blood Cell (WBC) Count 10.8 thou/uL (4.8-10.8)
[2021-02-22 04:37] LABS: Anion Gap 15 mmol/L (10-20); BUN (Urea Nitrogen) 21 mg/dL (8.9-20.6); Calc. Creatinine Clearance 145 mL/min (70-130); Calcium 9.2 mg/dL (7.8-10.44); Carbon Dioxide 20 mmol/L (22-29); Chloride 105 mmol/L (98-107); Glucose 103 mg/dL (70-105); Potassium 4.1 mmol/L (3.5-5.1); Sodium 136 mmol/L (136-145)
[2021-02-22 07:52] LABS: Actual Bicarbonate (HCO3a) 21.9 mEq/L (22-28); Base Excess (BEa) -1.6 mEq/L (-2.0 to +3.0); Calcium, Ionized (arterial) 1.24 mmol/L (1.12-1.30); Carboxyhemoglobin (COHb) 0.3 gm% (0.0-3.0); Hemoglobin (Hb) 12.2 g/dL (14.0-18.0); O2 Tension (PaO2), arterial 70.3 mmHg (80.0-100.0); Potassium - ABG Lab 3.91 mmol/L (3.70-5.30); pH, Arterial 7.44 (7.35-7.45)
[2021-02-22 07:54] LABS: Puncture Site RRA
[2021-02-22] MEDS: Fentanyl 100 MCG/2 ML VIAL SLOW IVP PRN ×2 (07:54→12:06)
[2021-02-22] MEDS: Lorazepam 2 MG/ML VIAL SLOW IVP PRN ×3 (07:55→13:34)
[2021-02-22] MEDS: Enoxaparin Sodium 60 MG/0.6 ML SYRINGE SC SCH ×2 (07:55→20:50)
[2021-02-22] MEDS: Acetaminophen 650 MG Suppository PR PRN ×2 (07:56→12:06)
[2021-02-22 08:18] LABS: Vancomycin, Trough 8.5 ug/mL
[2021-02-22] MEDS ORDERED: Methylnaltrexone 12 MG/0.6 ML VIAL SC SCH (09:15)
[2021-02-22] MEDS: Polyethylene Glycol 3350 17 GM Packet PO SCH ×2 (09:38→11:23)
[2021-02-22] MEDS: Senokot S 8.6-50 MG TAB PO SCH ×3 (09:38→20:50)
[2021-02-22] MEDS: Ascorbic Acid 500 mg Chewable Tablet PO SCH (09:39)
[2021-02-22] MEDS: Vancomycin 1.5 GRAM/300 ML BAG 1.5 GM in Premix Bag 1 BAG IVPB SCH ×3 (09:39→16:47)
[2021-02-22] MEDS: Pantoprazole 40 MG GRANULES PACKET PER TUBE SCH (09:39)
[2021-02-22] MEDS: Zinc Sulfate 220 MG CAP PO SCH (09:39)
[2021-02-22] MEDS ORDERED: Pantoprazole 40 MG VIAL IVP SCH (10:00)
[2021-02-22] MEDS: Bisacodyl 10 MG SUPP PR PRN (10:04)
[2021-02-22] MEDS ORDERED: Iopamidol-370 76% 500 ML 1 ML ONE (13:33)
[2021-02-22] MEDS ORDERED: Morphine 4 MG/ML VIAL SLOW IVP PRN (13:45)
[2021-02-22] MEDS ORDERED: Fentanyl CADD 100 ML ONE (13:49)
[2021-02-22] MEDS: Fentanyl CADD 100 ML IV SCH (14:02)
[2021-02-22] MEDS: Micafungin 100 MG in Sodium Chloride 0.9% 100 ML IVPB SCH (16:46)
[2021-02-23] MEDS: levETIRAcetam in NS 500 MG in Premix Bag 1 BAG IVPB SCH ×2 (00:33→13:48)
[2021-02-23] MEDS: Propofol 1,000 MG/100 ML VIAL IV PRN ×4 (00:34→21:18)
[2021-02-23] MEDS: Vancomycin 1.5 GRAM/300 ML BAG 1.5 GM in Premix Bag 1 BAG IVPB SCH ×3 (01:48→17:46)
[2021-02-23] MEDS: fentaNYL 75 mcg/hour Patch TD SCH (01:49)
[2021-02-23] MEDS: Metoclopramide HCl 10 MG/2 ML VIAL IVP SCH ×4 (03:43→22:15)
[2021-02-23] MEDS: Dexmedetomidine 1,000 MCG in Sodium Chloride 0.9% 250 ML 240 ML IVPB SCH ×2 (03:44→13:39)
[2021-02-23 04:41] LABS: #Eosinphils 0.1 thou/uL (0.0-0.7); #Lymphocytes 0.7 thou/uL (1.20-3.40); #Monocytes 0.6 thou/uL (0.11-0.59); %Basophils 0.3 % (0.0-1.0); %Eosinophils 1.4 % (0.0-10.0); %Lymphocytes 8.7 % (21.0-51.0); %Neutrophils 82.6 % (42.0-75.0); Hemoglobin 11.7 g/dL (14.0-18.0); Mean Corpuscular HGB CONC 33.7 g/dL (32.0-36.0); Mean Corpuscular Hemoglobin 29.5 pg (27.0-31.0); Mean Corpuscular Volume 87.6 fL (78.0-98.0); Mean Platelet Volume 10.3 fL (7.4-10.4); Platelet Count 82 thou/uL (130-400); RBC Distribution Width 12.9 % (11.5-14.5); Red Blood Cell (RBC) Count 3.95 mill/uL (4.70-6.10); White Blood Cell (WBC) Count 8.5 thou/uL (4.8-10.8)
[2021-02-23 04:57] LABS: Anion Gap 12 mmol/L (10-20); BUN (Urea Nitrogen) 19 mg/dL (8.9-20.6); Calc. Creatinine Clearance 157 mL/min (70-130); Calcium 8.3 mg/dL (7.8-10.44); Carbon Dioxide 18 mmol/L (22-29); Chloride 108 mmol/L (98-107); Glucose 90 mg/dL (70-105); Potassium 3.9 mmol/L (3.5-5.1); Sodium 134 mmol/L (136-145)
[2021-02-23 04:58] LABS: ALT (SGPT) 53 U/L (8-55); AST (SGOT) 29 U/L (5-34); Albumin 2.5 g/dL (3.5-5.0); Alkaline Phosphatase 64 U/L (40-110); Bilirubin, Direct 0.3 mg/dL (0.1-0.3); Bilirubin, Total 0.5 mg/dL (0.2-1.2); Protein, Total 5.2 g/dL (6.0-8.3)
[2021-02-23] MEDS: Acetaminophen 650 MG Suppository PR PRN ×2 (05:18)
[2021-02-23 06:58] LABS: Actual Bicarbonate (HCO3a) 19.4 mEq/L (22-28); Base Excess (BEa) -5.3 mEq/L (-2.0 to +3.0); CO2 Tension 35.1 mmHg (35.0-45.0); Calcium, Ionized (arterial) 1.29 mmol/L (1.12-1.30); Carboxyhemoglobin (COHb) 0.2 gm% (0.0-3.0); O2 Tension (PaO2), arterial 66.3 mmHg (80.0-100.0); Potassium - ABG Lab 3.64 mmol/L (3.70-5.30); pH, Arterial 7.36 (7.35-7.45)
[2021-02-23 06:59] LABS: Puncture Site RRA
[2021-02-23 07:00] LABS: ALV-art Gradient 175.025 mmHg (0-20)
[2021-02-23] MEDS: Piperacillin/Tazobactam 3.375 GM in Sodium Chloride 0.9% 100 ML IVPB SCH ×2 (08:56→15:50)
[2021-02-23] MEDS: Enoxaparin Sodium 60 MG/0.6 ML SYRINGE SC SCH ×2 (08:58→21:51)
[2021-02-23] MEDS: methylPREDNISolone Sod Succ/PF 125 MG/2 ML VIAL IVP SCH (09:00)
[2021-02-23] MEDS: Senokot S 8.6-50 MG TAB PO SCH ×2 (09:01→21:50)
[2021-02-23] MEDS: Polyethylene Glycol 3350 17 GM Packet PO SCH (09:02)
[2021-02-23 09:48] LABS: Vancomycin, Trough 16.9 ug/mL
[2021-02-23] MEDS: Pantoprazole 40 MG VIAL IVP SCH (13:48)
[2021-02-23] MEDS: Micafungin 100 MG in Sodium Chloride 0.9% 100 ML IVPB SCH (16:49)
[2021-02-24] MEDS: Piperacillin/Tazobactam 3.375 GM in Sodium Chloride 0.9% 100 ML IVPB SCH ×4 (00:41→23:11)
[2021-02-24] MEDS: levETIRAcetam in NS 500 MG in Premix Bag 1 BAG IVPB SCH ×2 (00:41→12:35)
[2021-02-24] MEDS: Vancomycin 1.5 GRAM/300 ML BAG 1.5 GM in Premix Bag 1 BAG IVPB SCH ×3 (01:51→17:25)
[2021-02-24] MEDS: Metoclopramide HCl 10 MG/2 ML VIAL IVP SCH ×4 (02:53→21:11)
[2021-02-24] MEDS: Propofol 1,000 MG/100 ML VIAL IV PRN (03:37)
[2021-02-24 04:30] LABS: #Eosinphils 0.1 thou/uL (0.0-0.7); #Lymphocytes 0.7 thou/uL (1.20-3.40); #Monocytes 0.4 thou/uL (0.11-0.59); #Neutrophils 7.1 thou/uL (1.40-6.50); %Basophils 0.4 % (0.0-1.0); %Eosinophils 1.3 % (0.0-10.0); %Lymphocytes 8.3 % (21.0-51.0); %Monocytes 5.2 % (0.0-10.0); %Neutrophils 84.8 % (42.0-75.0); Mean Corpuscular HGB CONC 34.4 g/dL (32.0-36.0); Mean Corpuscular Hemoglobin 30.7 pg (27.0-31.0); Mean Platelet Volume 9.9 fL (7.4-10.4); Platelet Count 86 thou/uL (130-400); RBC Distribution Width 13.1 % (11.5-14.5); Red Blood Cell (RBC) Count 3.58 mill/uL (4.70-6.10); White Blood Cell (WBC) Count 8.4 thou/uL (4.8-10.8)
[2021-02-24] MEDS ORDERED: Fentanyl CADD 100 ML ONE (04:38)
[2021-02-24 04:40] LABS: Anion Gap 13 mmol/L (10-20); BUN (Urea Nitrogen) 15 mg/dL (8.9-20.6); Calc. Creatinine Clearance 185 mL/min (70-130); Calcium 8.8 mg/dL (7.8-10.44); Carbon Dioxide 19 mmol/L (22-29); Chloride 108 mmol/L (98-107); Glucose 79 mg/dL (70-105); Potassium 3.8 mmol/L (3.5-5.1); Sodium 136 mmol/L (136-145)
[2021-02-24] MEDS: Dexmedetomidine 1,000 MCG in Sodium Chloride 0.9% 250 ML 240 ML IVPB SCH ×3 (04:42→21:03)
[2021-02-24] MEDS: Fentanyl CADD 100 ML IV SCH (04:43)
[2021-02-24 08:24] LABS: Actual Bicarbonate (HCO3a) 18.6 mEq/L (22-28); Base Excess (BEa) -7.1 mEq/L (-2.0 to +3.0); CO2 Tension 37.8 mmHg (35.0-45.0); Calcium, Ionized (arterial) 1.34 mmol/L (1.12-1.30); Carboxyhemoglobin (COHb) 0.4 gm% (0.0-3.0); Hemoglobin (Hb) 12.4 g/dL (14.0-18.0); Potassium - ABG Lab 3.86 mmol/L (3.70-5.30); pH, Arterial 7.31 (7.35-7.45)
[2021-02-24] MEDS: methylPREDNISolone Sod Succ/PF 125 MG/2 ML VIAL IVP SCH (08:25)
[2021-02-24 08:26] LABS: O2 Tension (PaO2), arterial 55.8 mmHg (80.0-100.0)
[2021-02-24 08:27] LABS: Puncture Site RRA
[2021-02-24] MEDS: Polyethylene Glycol 3350 17 GM Packet PO SCH (08:29)
[2021-02-24] MEDS: Senokot S 8.6-50 MG TAB PO SCH ×2 (08:29→21:12)
[2021-02-24] MEDS: Enoxaparin Sodium 60 MG/0.6 ML SYRINGE SC SCH ×2 (09:30→21:02)
[2021-02-24] MEDS: Lorazepam 2 MG/ML VIAL SLOW IVP PRN ×3 (09:45→22:24)
[2021-02-24] MEDS: Pantoprazole 40 MG VIAL IVP SCH (10:10)
[2021-02-24] MEDS: Acetaminophen 650 MG Suppository PR PRN (12:28)
[2021-02-24] MEDS: Micafungin 100 MG in Sodium Chloride 0.9% 100 ML IVPB SCH (15:38)
[2021-02-24] MEDS: Bisacodyl 10 MG SUPP PR PRN (16:23)
[2021-02-25] MEDS: Lorazepam 2 MG/ML VIAL SLOW IVP PRN ×2 (01:59→11:33)
[2021-02-25] MEDS ORDERED: Fentanyl CADD 100 ML ONE (02:02)
[2021-02-25] MEDS: Fentanyl CADD 100 ML IV SCH (02:03)
[2021-02-25] MEDS: levETIRAcetam in NS 500 MG in Premix Bag 1 BAG IVPB SCH ×2 (02:15→13:16)
[2021-02-25] MEDS: Vancomycin 1.5 GRAM/300 ML BAG 1.5 GM in Premix Bag 1 BAG IVPB SCH ×3 (02:17→17:04)
[2021-02-25] MEDS: Metoclopramide HCl 10 MG/2 ML VIAL IVP SCH ×4 (02:59→20:57)
[2021-02-25 03:49] LABS: #Eosinphils 0.1 thou/uL (0.0-0.7); #Lymphocytes 0.7 thou/uL (1.20-3.40); #Monocytes 0.4 thou/uL (0.11-0.59); #Neutrophils 6.4 thou/uL (1.40-6.50); %Basophils 0.3 % (0.0-1.0); %Eosinophils 1.3 % (0.0-10.0); %Lymphocytes 8.9 % (21.0-51.0); %Monocytes 5.8 % (0.0-10.0); %Neutrophils 83.8 % (42.0-75.0); Hemoglobin 10.8 g/dL (14.0-18.0); Mean Corpuscular HGB CONC 33.8 g/dL (32.0-36.0); Mean Corpuscular Hemoglobin 29.7 pg (27.0-31.0); Mean Corpuscular Volume 87.9 fL (78.0-98.0); Mean Platelet Volume 9.6 fL (7.4-10.4); Platelet Count 85 thou/uL (130-400); RBC Distribution Width 12.9 % (11.5-14.5); Red Blood Cell (RBC) Count 3.65 mill/uL (4.70-6.10); White Blood Cell (WBC) Count 7.6 thou/uL (4.8-10.8)
[2021-02-25 04:07] LABS: Anion Gap 14 mmol/L (10-20); BUN (Urea Nitrogen) 13 mg/dL (8.9-20.6); Calc. Creatinine Clearance 180 mL/min (70-130); Calcium 8.5 mg/dL (7.8-10.44); Carbon Dioxide 20 mmol/L (22-29); Chloride 109 mmol/L (98-107); Glucose 104 mg/dL (70-105); Potassium 3.6 mmol/L (3.5-5.1); Sodium 139 mmol/L (136-145)
[2021-02-25] MEDS: Dexmedetomidine 1,000 MCG in Sodium Chloride 0.9% 250 ML 240 ML IVPB SCH (04:29)
[2021-02-25] MEDS: methylPREDNISolone Sod Succ/PF 125 MG/2 ML VIAL IVP SCH (09:23)
[2021-02-25] MEDS: Enoxaparin Sodium 60 MG/0.6 ML SYRINGE SC SCH ×2 (09:23→20:54)
[2021-02-25] MEDS: Piperacillin/Tazobactam 3.375 GM in Sodium Chloride 0.9% 100 ML IVPB SCH ×3 (09:23→23:18)
[2021-02-25] MEDS: Pantoprazole 40 MG VIAL IVP SCH (09:24)
[2021-02-25] MEDS: Senokot S 8.6-50 MG TAB PO SCH ×2 (09:24→20:57)
[2021-02-25] MEDS: Polyethylene Glycol 3350 17 GM Packet PO SCH (09:24)
[2021-02-25 10:02] LABS: Vancomycin, Trough 17.4 ug/mL
[2021-02-25] MEDS: Midazolam In 0.9 % NaCl/PF 100 ML IVPB PRN (11:51)
[2021-02-25] MEDS: Acetaminophen 325 MG TAB PO PRN (14:29)
[2021-02-25] MEDS: Micafungin 100 MG in Sodium Chloride 0.9% 100 ML IVPB SCH (15:48)
[2021-02-26] MEDS: levETIRAcetam in NS 500 MG in Premix Bag 1 BAG IVPB SCH ×2 (00:31→12:58)
[2021-02-26] MEDS: fentaNYL 75 mcg/hour Patch TD SCH (00:34)
[2021-02-26] MEDS: Vancomycin 1.5 GRAM/300 ML BAG 1.5 GM in Premix Bag 1 BAG IVPB SCH ×3 (01:43→18:49)
[2021-02-26] MEDS: Metoclopramide HCl 10 MG/2 ML VIAL IVP SCH ×4 (02:58→20:52)
[2021-02-26] MEDS: Dexmedetomidine 1,000 MCG in Sodium Chloride 0.9% 250 ML 240 ML IVPB SCH ×2 (02:59→14:08)
[2021-02-26 04:22] LABS: #Eosinphils 0.1 thou/uL (0.0-0.7); #Lymphocytes 0.5 thou/uL (1.20-3.40); #Monocytes 0.4 thou/uL (0.11-0.59); #Neutrophils 4.8 thou/uL (1.40-6.50); %Basophils 0.2 % (0.0-1.0); %Eosinophils 0.9 % (0.0-10.0); %Lymphocytes 9.2 % (21.0-51.0); %Monocytes 6.1 % (0.0-10.0); %Neutrophils 83.5 % (42.0-75.0); Hemoglobin 10.3 g/dL (14.0-18.0); Mean Corpuscular HGB CONC 33.4 g/dL (32.0-36.0); Mean Corpuscular Hemoglobin 29.3 pg (27.0-31.0); Mean Corpuscular Volume 87.5 fL (78.0-98.0); Mean Platelet Volume 10.2 fL (7.4-10.4); Platelet Count 84 thou/uL (130-400); RBC Distribution Width 12.9 % (11.5-14.5); White Blood Cell (WBC) Count 5.7 thou/uL (4.8-10.8)
[2021-02-26 04:42] LABS: Anion Gap 11 mmol/L (10-20); BUN (Urea Nitrogen) 14 mg/dL (8.9-20.6); Calc. Creatinine Clearance 197 mL/min (70-130); Calcium 9.2 mg/dL (7.8-10.44); Carbon Dioxide 20 mmol/L (22-29); Chloride 110 mmol/L (98-107); Glucose 115 mg/dL (70-105); Potassium 3.4 mmol/L (3.5-5.1); Sodium 138 mmol/L (136-145)
[2021-02-26] MEDS ORDERED: Fentanyl CADD 100 ML ONE (08:18)
[2021-02-26] MEDS: Piperacillin/Tazobactam 3.375 GM in Sodium Chloride 0.9% 100 ML IVPB SCH ×3 (08:23→23:12)
[2021-02-26] MEDS: Fentanyl CADD 100 ML IV SCH (08:23)
[2021-02-26] MEDS: methylPREDNISolone Sod Succ/PF 125 MG/2 ML VIAL IVP SCH (09:54)
[2021-02-26] MEDS: Pantoprazole 40 MG VIAL IVP SCH (10:05)
[2021-02-26] MEDS ORDERED: Lidocaine 1% w/Epinephrine 1:100K 20 ML VIAL ONE (10:14)
[2021-02-26] MEDS ORDERED: Bupivacaine 0.25% HCL 30 ML VIAL ONE (10:14)
[2021-02-26] MEDS ORDERED: Midazolam HCl 2 mg/2 ml Vial ONE (10:16)
[2021-02-26] MEDS ORDERED: Fentanyl 100 MCG/2 ML VIAL ONE (10:16)
[2021-02-26] MEDS ORDERED: Rocuronium Bromide 10 MG/ML (10ML VIAL) ONE (10:59)
[2021-02-26] MEDS ORDERED: ePHEDrine 50 MG/ML VIAL ONE (10:59)
[2021-02-26] MEDS ORDERED: PROPOFOL 200 MG/20 ML VIAL ONE (10:59)
[2021-02-26] MEDS: Polyethylene Glycol 3350 17 GM Packet PO SCH (11:03)
[2021-02-26] MEDS: Senokot S 8.6-50 MG TAB PO SCH ×2 (11:03→20:53)
[2021-02-26] MEDS: Enoxaparin Sodium 60 MG/0.6 ML SYRINGE SC SCH ×2 (11:04→21:00)
[2021-02-26] MEDS: Midazolam In 0.9 % NaCl/PF 100 ML IVPB PRN (14:02)
[2021-02-26] MEDS: fentaNYL 50 mcg/hour Patch TD SCH (15:49)
[2021-02-26] MEDS: Micafungin 100 MG in Sodium Chloride 0.9% 100 ML IVPB SCH (16:36)
[2021-02-27] MEDS: levETIRAcetam in NS 500 MG in Premix Bag 1 BAG IVPB SCH ×2 (00:37→12:53)
[2021-02-27] MEDS: Vancomycin 1.5 GRAM/300 ML BAG 1.5 GM in Premix Bag 1 BAG IVPB SCH ×2 (01:39→09:20)
[2021-02-27] MEDS: Metoclopramide HCl 10 MG/2 ML VIAL IVP SCH ×4 (02:46→21:11)
[2021-02-27 04:32] LABS: #Eosinphils 0.1 thou/uL (0.0-0.7); #Lymphocytes 0.5 thou/uL (1.20-3.40); #Monocytes 0.4 thou/uL (0.11-0.59); #Neutrophils 4.9 thou/uL (1.40-6.50); %Basophils 0.6 % (0.0-1.0); %Eosinophils 1.8 % (0.0-10.0); %Monocytes 5.9 % (0.0-10.0); %Neutrophils 82.7 % (42.0-75.0); Hemoglobin 10.4 g/dL (14.0-18.0); Mean Corpuscular HGB CONC 33.6 g/dL (32.0-36.0); Mean Corpuscular Hemoglobin 29.6 pg (27.0-31.0); Mean Corpuscular Volume 88.3 fL (78.0-98.0); Mean Platelet Volume 9.3 fL (7.4-10.4); Platelet Count 88 thou/uL (130-400); Red Blood Cell (RBC) Count 3.51 mill/uL (4.70-6.10); White Blood Cell (WBC) Count 5.9 thou/uL (4.8-10.8)
[2021-02-27 04:47] LABS: Anion Gap 10 mmol/L (10-20); BUN (Urea Nitrogen) 13 mg/dL (8.9-20.6); Calc. Creatinine Clearance 192 mL/min (70-130); Calcium 9.1 mg/dL (7.8-10.44); Carbon Dioxide 23 mmol/L (22-29); Chloride 109 mmol/L (98-107); Glucose 83 mg/dL (70-105); Potassium 3.3 mmol/L (3.5-5.1); Sodium 139 mmol/L (136-145)
[2021-02-27] MEDS: Lorazepam 2 MG/ML VIAL SLOW IVP PRN (07:28)
[2021-02-27] MEDS: methylPREDNISolone Sod Succ 40 MG VIAL IVP SCH (07:29)
[2021-02-27] MEDS: Enoxaparin Sodium 40 MG/0.4 ML SYRINGE SC SCH ×2 (07:29→21:10)
[2021-02-27] MEDS: Senokot S 8.6-50 MG TAB PO SCH ×3 (07:30→21:19)
[2021-02-27] MEDS: Polyethylene Glycol 3350 17 GM Packet PO SCH ×2 (07:30→12:33)
[2021-02-27 07:48] LABS: CO2 Tension 44.2 mmHg (35.0-45.0); pH, Arterial 7.34 (7.35-7.45)
[2021-02-27] MEDS: Piperacillin/Tazobactam 3.375 GM in Sodium Chloride 0.9% 100 ML IVPB SCH ×3 (07:48→23:51)
[2021-02-27 07:49] LABS: Actual Bicarbonate (HCO3a) 23.1 mEq/L (22-28); Base Excess (BEa) -2.7 mEq/L (-2.0 to +3.0); Calcium, Ionized (arterial) 1.28 mmol/L (1.12-1.30); Carboxyhemoglobin (COHb) 0.5 gm% (0.0-3.0); Hemoglobin (Hb) 11.6 g/dL (14.0-18.0); O2 Tension (PaO2), arterial 42.6 mmHg (80.0-100.0); Potassium - ABG Lab 3.59 mmol/L (3.70-5.30)
[2021-02-27 07:50] LABS: Puncture Site RRA
[2021-02-27] MEDS ORDERED: Metoprolol Tartrate 5 MG/5 ML VIAL ONE (07:52)
[2021-02-27] MEDS ORDERED: Lactated Ringer's 500 ML IV SCH (08:45)
[2021-02-27] MEDS: Midazolam In 0.9 % NaCl/PF 100 ML IVPB PRN ×2 (09:06→23:40)
[2021-02-27 09:14] LABS: Vancomycin, Trough 21.8 ug/mL
[2021-02-27] MEDS: Pantoprazole 40 MG VIAL IVP SCH (09:20)
[2021-02-27] MEDS: Dexmedetomidine 1,000 MCG in Sodium Chloride 0.9% 250 ML 240 ML IVPB SCH (10:02)
[2021-02-27] MEDS ORDERED: Fentanyl CADD 100 ML ONE (10:15)
[2021-02-27] MEDS: Fentanyl CADD 100 ML IV SCH (10:22)
[2021-02-27] MEDS: Micafungin 100 MG in Sodium Chloride 0.9% 100 ML IVPB SCH (15:13)
[2021-02-27] MEDS ORDERED: Electrolyte Replacement Protocol 1 EACH FS SCH (16:45)
[2021-02-27] MEDS: VANCOMYCIN 1.25 GM/250 ML BAG 1.25 GM in Premix Bag 1 BAG IVPB SCH (17:26)
[2021-02-27] MEDS ORDERED: Potassium Chloride 40 MEQ in Sodium Chloride 0.9% 250 ML 250 ML IVPB SCH (20:00)
[2021-02-28] MEDS: levETIRAcetam in NS 500 MG in Premix Bag 1 BAG IVPB SCH ×2 (02:41→12:19)
[2021-02-28] MEDS: Metoclopramide HCl 10 MG/2 ML VIAL IVP SCH ×4 (02:42→21:21)
[2021-02-28] MEDS: VANCOMYCIN 1.25 GM/250 ML BAG 1.25 GM in Premix Bag 1 BAG IVPB SCH (02:42)
[2021-02-28] MEDS: Dexmedetomidine 1,000 MCG in Sodium Chloride 0.9% 250 ML 240 ML IVPB SCH ×2 (04:04→12:50)
[2021-02-28 04:31] LABS: #Eosinphils 0.2 thou/uL (0.0-0.7); #Lymphocytes 0.5 thou/uL (1.20-3.40); #Monocytes 0.3 thou/uL (0.11-0.59); #Neutrophils 2.9 thou/uL (1.40-6.50); %Basophils 0.3 % (0.0-1.0); %Eosinophils 5.8 % (0.0-10.0); %Lymphocytes 12.9 % (21.0-51.0); %Monocytes 6.9 % (0.0-10.0); Hemoglobin 9.4 g/dL (14.0-18.0); Mean Corpuscular Hemoglobin 30.1 pg (27.0-31.0); Mean Corpuscular Volume 88.5 fL (78.0-98.0); Mean Platelet Volume 9.3 fL (7.4-10.4); Platelet Count 81 thou/uL (130-400); RBC Distribution Width 13.1 % (11.5-14.5); Red Blood Cell (RBC) Count 3.13 mill/uL (4.70-6.10); White Blood Cell (WBC) Count 3.9 thou/uL (4.8-10.8)
[2021-02-28 04:56] LABS: Anion Gap 10 mmol/L (10-20); BUN (Urea Nitrogen) 13 mg/dL (8.9-20.6); Calc. Creatinine Clearance 193 mL/min (70-130); Carbon Dioxide 25 mmol/L (22-29); Chloride 111 mmol/L (98-107); Glucose 78 mg/dL (70-105); Magnesium 1.8 mg/dL (1.6-2.6); Potassium 3.3 mmol/L (3.5-5.1); Sodium 143 mmol/L (136-145)
[2021-02-28] MEDS ORDERED: Fentanyl CADD 100 ML ONE ×2 (06:05→22:44)
[2021-02-28] MEDS: Fentanyl CADD 100 ML IV SCH ×2 (06:09→22:49)
[2021-02-28 06:57] LABS: Actual Bicarbonate (HCO3a) 25.8 mEq/L (22-28); Base Excess (BEa) 1.2 mEq/L (-2.0 to +3.0); CO2 Tension 41.1 mmHg (35.0-45.0); Calcium, Ionized (arterial) 1.24 mmol/L (1.12-1.30); Carboxyhemoglobin (COHb) 0.4 gm% (0.0-3.0); Hemoglobin (Hb) 10.3 g/dL (14.0-18.0); Potassium - ABG Lab 3.26 mmol/L (3.70-5.30); pH, Arterial 7.42 (7.35-7.45)
[2021-02-28] MEDS ORDERED: Magnesium 2 GM/50 ML 2 GM in Premix Bag 1 BAG IVPB SCH (07:00)
[2021-02-28 07:16] LABS: ALV-art Gradient 246.725 mmHg (0-20); O2 Tension (PaO2), arterial 58.4 mmHg (80.0-100.0); Puncture Site RRA
[2021-02-28] MEDS ORDERED: Potassium Chloride 40 MEQ in Sodium Chloride 0.9% 250 ML 250 ML IVPB SCH (08:00)
[2021-02-28] MEDS ORDERED: Potassium Chloride 20 MEQ TAB PO SCH (08:45)
[2021-02-28] MEDS: Polyethylene Glycol 3350 17 GM Packet PO SCH (08:56)
[2021-02-28] MEDS: Senokot S 8.6-50 MG TAB PO SCH ×2 (08:56→21:21)
[2021-02-28] MEDS: Furosemide 40 MG/4 ML VIAL SLOW IVP SCH (09:01)
[2021-02-28] MEDS: Pantoprazole 40 MG VIAL IVP SCH (09:03)
[2021-02-28] MEDS: methylPREDNISolone Sod Succ 40 MG VIAL IVP SCH (09:04)
[2021-02-28] MEDS: Enoxaparin Sodium 40 MG/0.4 ML SYRINGE SC SCH ×2 (09:06→21:22)
[2021-02-28] MEDS: Piperacillin/Tazobactam 3.375 GM in Sodium Chloride 0.9% 100 ML IVPB SCH (09:06)
[2021-02-28 10:19] LABS: Phosphorus 2.2 mg/dL (2.3-4.7)
[2021-02-28] MEDS: Midazolam In 0.9 % NaCl/PF 100 ML IVPB PRN (12:50)
[2021-02-28] MEDS ORDERED: Electrolyte Replacement Protocol 1 EACH FS SCH (14:15)
[2021-02-28] MEDS: Sodium Acetate 2 mEq/ml 40 MEQ, Sodium Chloride 30 MEQ, Potassium Chloride 20 MEQ, Pota... IV SCH (23:36)
[2021-03-01] MEDS: levETIRAcetam in NS 500 MG in Premix Bag 1 BAG IVPB SCH ×2 (01:41→15:09)
[2021-03-01] MEDS: Metoclopramide HCl 10 MG/2 ML VIAL IVP SCH ×4 (04:07→21:42)
[2021-03-01 04:40] LABS: #Eosinphils 0.2 thou/uL (0.0-0.7); #Lymphocytes 0.5 thou/uL (1.20-3.40); #Monocytes 0.2 thou/uL (0.11-0.59); #Neutrophils 2.8 thou/uL (1.40-6.50); %Eosinophils 5.6 % (0.0-10.0); %Lymphocytes 14.1 % (21.0-51.0); %Monocytes 5.2 % (0.0-10.0); Hemoglobin 9.3 g/dL (14.0-18.0); Mean Corpuscular HGB CONC 33.7 g/dL (32.0-36.0); Mean Corpuscular Hemoglobin 29.9 pg (27.0-31.0); Mean Corpuscular Volume 88.6 fL (78.0-98.0); Platelet Count 88 thou/uL (130-400); Red Blood Cell (RBC) Count 3.11 mill/uL (4.70-6.10); White Blood Cell (WBC) Count 3.7 thou/uL (4.8-10.8)
[2021-03-01 04:46] LABS: Anion Gap 8 mmol/L (10-20); BUN (Urea Nitrogen) 16 mg/dL (8.9-20.6); Calc. Creatinine Clearance 191 mL/min (70-130); Calcium 9.1 mg/dL (7.8-10.44); Carbon Dioxide 30 mmol/L (22-29); Chloride 106 mmol/L (98-107); Glucose 142 mg/dL (70-105); Magnesium 1.9 mg/dL (1.6-2.6); Potassium 3.1 mmol/L (3.5-5.1); Sodium 141 mmol/L (136-145)
[2021-03-01] MEDS: Midazolam In 0.9 % NaCl/PF 100 ML IVPB PRN ×2 (05:19→20:47)
[2021-03-01] MEDS ORDERED: Potassium Chloride 40 MEQ in Premix Bag 1 BAG IVPB SCH (06:00)
[2021-03-01] MEDS ORDERED: Magnesium 2 GM/50 ML 2 GM in Premix Bag 1 BAG IVPB SCH ×2 (06:00→22:00)
[2021-03-01 06:57] LABS: Actual Bicarbonate (HCO3a) 26.5 mEq/L (22-28); Base Excess (BEa) 2.1 mEq/L (-2.0 to +3.0); CO2 Tension 40.6 mmHg (35.0-45.0); Calcium, Ionized (arterial) 1.24 mmol/L (1.12-1.30); Carboxyhemoglobin (COHb) 0.6 gm% (0.0-3.0); Hemoglobin (Hb) 10.3 g/dL (14.0-18.0); Potassium - ABG Lab 3.47 mmol/L (3.70-5.30); pH, Arterial 7.43 (7.35-7.45)
[2021-03-01 06:58] LABS: O2 Tension (PaO2), arterial 54.8 mmHg (80.0-100.0); Puncture Site RRA
[2021-03-01] MEDS: Senokot S 8.6-50 MG TAB PO SCH ×2 (08:53→21:42)
[2021-03-01] MEDS: Polyethylene Glycol 3350 17 GM Packet PO SCH (08:53)
[2021-03-01] MEDS: predniSONE 20 MG TAB PER TUBE SCH (08:54)
[2021-03-01] MEDS: Enoxaparin Sodium 40 MG/0.4 ML SYRINGE SC SCH ×2 (09:23→21:42)
[2021-03-01] MEDS: Spironolactone 25 MG TAB PO SCH (09:23)
[2021-03-01] MEDS: Furosemide 40 MG/4 ML VIAL SLOW IVP SCH (09:27)
[2021-03-01] MEDS ORDERED: Iopamidol 370 76% 50 ML VIAL FS ONE (10:02)
[2021-03-01] MEDS ORDERED: Iopamidol-370 76% 500 ML 1 ML ONE (10:02)
[2021-03-01] MEDS: Pantoprazole 40 MG VIAL IVP SCH (10:58)
[2021-03-01] MEDS ORDERED: Fentanyl CADD 0 ML ONE (14:55)
[2021-03-01] MEDS ORDERED: Fentanyl CADD 100 ML ONE (14:57)
[2021-03-01] MEDS: Fentanyl CADD 100 ML IV SCH (15:04)
[2021-03-01] MEDS: fentaNYL 50 mcg/hour Patch TD SCH (17:53)
[2021-03-01] MEDS: Dexmedetomidine 1,000 MCG in Sodium Chloride 0.9% 250 ML 240 ML IVPB SCH (21:00)
[2021-03-01 21:26] LABS: Anion Gap 9 mmol/L (10-20); BUN (Urea Nitrogen) 21 mg/dL (8.9-20.6); Calc. Creatinine Clearance 190 mL/min (70-130); Carbon Dioxide 32 mmol/L (22-29); Chloride 104 mmol/L (98-107); Glucose 117 mg/dL (70-105); Magnesium 1.9 mg/dL (1.6-2.6); Potassium 3.6 mmol/L (3.5-5.1); Sodium 141 mmol/L (136-145)
[2021-03-01] MEDS: Lorazepam 2 MG/ML VIAL SLOW IVP PRN (21:42)
[2021-03-01] MEDS: Acetaminophen 325 MG TAB PO PRN (21:51)
[2021-03-01] MEDS ORDERED: Potassium Phosphate 15 MMOL in Sodium Chloride 0.9% 100 ML IVPB SCH (22:15)
[2021-03-01] MEDS: Sodium Acetate 2 mEq/ml 40 MEQ, Sodium Chloride 30 MEQ, Potassium Chloride 20 MEQ, Pota... IV SCH (22:40)
[2021-03-02] MEDS: levETIRAcetam in NS 500 MG in Premix Bag 1 BAG IVPB SCH ×2 (00:39→13:48)
[2021-03-02] MEDS: Metoclopramide HCl 10 MG/2 ML VIAL IVP SCH ×4 (03:52→20:57)
[2021-03-02 04:16] LABS: #Eosinphils 0.3 thou/uL (0.0-0.7); #Lymphocytes 0.5 thou/uL (1.20-3.40); #Monocytes 0.2 thou/uL (0.11-0.59); #Neutrophils 3.4 thou/uL (1.40-6.50); %Basophils 0.4 % (0.0-1.0); %Eosinophils 5.8 % (0.0-10.0); %Lymphocytes 11.8 % (21.0-51.0); %Monocytes 5.3 % (0.0-10.0); %Neutrophils 76.7 % (42.0-75.0); Hemoglobin 9.2 g/dL (14.0-18.0); Mean Corpuscular HGB CONC 32.7 g/dL (32.0-36.0); Mean Corpuscular Hemoglobin 28.9 pg (27.0-31.0); Mean Corpuscular Volume 88.4 fL (78.0-98.0); Mean Platelet Volume 8.8 fL (7.4-10.4); Platelet Count 96 thou/uL (130-400); RBC Distribution Width 13.2 % (11.5-14.5); Red Blood Cell (RBC) Count 3.19 mill/uL (4.70-6.10); White Blood Cell (WBC) Count 4.4 thou/uL (4.8-10.8)
[2021-03-02 04:31] LABS: Anion Gap 9 mmol/L (10-20); BUN (Urea Nitrogen) 19 mg/dL (8.9-20.6); Calc. Creatinine Clearance 193 mL/min (70-130); Calcium 8.6 mg/dL (7.8-10.44); Carbon Dioxide 30 mmol/L (22-29); Chloride 105 mmol/L (98-107); Glucose 115 mg/dL (70-105); Potassium 3.5 mmol/L (3.5-5.1); Sodium 140 mmol/L (136-145)
[2021-03-02] MEDS ORDERED: Fentanyl CADD 100 ML ONE (06:23)
[2021-03-02] MEDS ORDERED: Potassium Chloride 40 MEQ in Premix Bag 1 BAG IVPB SCH (06:45)
[2021-03-02] MEDS: Fentanyl CADD 100 ML IV SCH (06:50)
[2021-03-02 06:56] LABS: Actual Bicarbonate (HCO3a) 27.4 mEq/L (22-28); Base Excess (BEa) 3.5 mEq/L (-2.0 to +3.0); CO2 Tension 38.9 mmHg (35.0-45.0); Carboxyhemoglobin (COHb) 0.5 gm% (0.0-3.0); Hemoglobin (Hb) 9.6 g/dL (14.0-18.0); Potassium - ABG Lab 3.53 mmol/L (3.70-5.30); pH, Arterial 7.47 (7.35-7.45)
[2021-03-02 06:58] LABS: O2 Tension (PaO2), arterial 52.2 mmHg (80.0-100.0)
[2021-03-02 06:59] LABS: ALV-art Gradient 291.325 mmHg (0-20); Peep/CPAP 7.5 cmH2O; Puncture Site LRA
[2021-03-02] MEDS: predniSONE 20 MG TAB PER TUBE SCH (09:19)
[2021-03-02] MEDS: Furosemide 40 MG/4 ML VIAL SLOW IVP SCH (09:19)
[2021-03-02] MEDS: Senokot S 8.6-50 MG TAB PO SCH ×2 (09:19→20:57)
[2021-03-02] MEDS: Polyethylene Glycol 3350 17 GM Packet PO SCH (09:20)
[2021-03-02] MEDS: Pantoprazole 40 MG VIAL IVP SCH (09:20)
[2021-03-02] MEDS: Spironolactone 25 MG TAB PO SCH (09:20)
[2021-03-02] MEDS: Enoxaparin Sodium 40 MG/0.4 ML SYRINGE SC SCH ×2 (09:26→20:58)
[2021-03-02] MEDS: Midazolam In 0.9 % NaCl/PF 100 ML IVPB PRN (10:54)
[2021-03-02] MEDS ORDERED: MEROPENEM 1 GM/50 ML 1 GM in Premix Bag 1 BAG IVPB SCH (12:15)
[2021-03-02] MEDS: Acetaminophen 325 MG TAB PO PRN (13:34)
[2021-03-02] MEDS ORDERED: Meropenem 1 GM in Sodium Chloride 0.9% 100 ML IVPB SCH (14:00)
[2021-03-02] MEDS: Azithromycin 500 MG in Sodium Chloride 0.9% 250 ML 250 ML IVPB SCH (14:54)
[2021-03-02 15:54] LABS: Anion Gap 11 mmol/L (10-20); BUN (Urea Nitrogen) 20 mg/dL (8.9-20.6); Calc. Creatinine Clearance 193 mL/min (70-130); Calcium 9.1 mg/dL (7.8-10.44); Carbon Dioxide 28 mmol/L (22-29); Chloride 104 mmol/L (98-107); Glucose 155 mg/dL (70-105); Potassium 4.3 mmol/L (3.5-5.1); Sodium 139 mmol/L (136-145)
[2021-03-02] MEDS: Dexmedetomidine 1,000 MCG in Sodium Chloride 0.9% 250 ML 240 ML IVPB SCH (16:32)
[2021-03-02] MEDS: MEROPENEM 1 GM/50 ML 1 GM in Premix Bag 1 BAG IVPB SCH (20:50)
[2021-03-02] MEDS: Sodium Acetate 2 mEq/ml 40 MEQ, Sodium Chloride 30 MEQ, Potassium Chloride 20 MEQ, Pota... IV SCH (22:19)
[2021-03-03] MEDS ORDERED: Fentanyl CADD 100 ML ONE ×3 (00:14→19:15)
[2021-03-03] MEDS: Fentanyl CADD 100 ML IV SCH ×3 (00:21→19:42)
[2021-03-03] MEDS: levETIRAcetam in NS 500 MG in Premix Bag 1 BAG IVPB SCH ×2 (00:34→13:11)
[2021-03-03] MEDS: Lorazepam 2 MG/ML VIAL SLOW IVP PRN ×2 (04:14→22:18)
[2021-03-03] MEDS: MEROPENEM 1 GM/50 ML 1 GM in Premix Bag 1 BAG IVPB SCH ×3 (04:15→21:11)
[2021-03-03] MEDS: Metoclopramide HCl 10 MG/2 ML VIAL IVP SCH ×4 (04:15→21:39)
[2021-03-03] MEDS: Dexmedetomidine 1,000 MCG in Sodium Chloride 0.9% 250 ML 240 ML IVPB SCH ×3 (04:15→22:32)
[2021-03-03 04:41] LABS: #Eosinphils 0.2 thou/uL (0.0-0.7); #Lymphocytes 0.5 thou/uL (1.20-3.40); #Monocytes 0.2 thou/uL (0.11-0.59); %Basophils 0.4 % (0.0-1.0); %Eosinophils 3.9 % (0.0-10.0); %Monocytes 3.7 % (0.0-10.0); Hemoglobin 9.4 g/dL (14.0-18.0); Mean Corpuscular HGB CONC 33.5 g/dL (32.0-36.0); Mean Corpuscular Hemoglobin 29.8 pg (27.0-31.0); Mean Platelet Volume 8.9 fL (7.4-10.4); Platelet Count 106 thou/uL (130-400); RBC Distribution Width 12.9 % (11.5-14.5); Red Blood Cell (RBC) Count 3.17 mill/uL (4.70-6.10); White Blood Cell (WBC) Count 4.9 thou/uL (4.8-10.8)
[2021-03-03 04:54] LABS: Anion Gap 8 mmol/L (10-20); BUN (Urea Nitrogen) 17 mg/dL (8.9-20.6); Calc. Creatinine Clearance 199 mL/min (70-130); Calcium 9.2 mg/dL (7.8-10.44); Carbon Dioxide 32 mmol/L (22-29); Chloride 104 mmol/L (98-107); Glucose 134 mg/dL (70-105); Potassium 3.9 mmol/L (3.5-5.1); Sodium 140 mmol/L (136-145)
[2021-03-03 06:31] LABS: Actual Bicarbonate (HCO3a) 26.9 mEq/L (22-28); Base Excess (BEa) 1.9 mEq/L (-2.0 to +3.0); CO2 Tension 43.7 mmHg (35.0-45.0); Calcium, Ionized (arterial) 1.27 mmol/L (1.12-1.30); Carboxyhemoglobin (COHb) 0.9 gm% (0.0-3.0); Hemoglobin (Hb) 10.7 g/dL (14.0-18.0); pH, Arterial 7.41 (7.35-7.45)
[2021-03-03 06:39] LABS: O2 Tension (PaO2), arterial 52.2 mmHg (80.0-100.0)
[2021-03-03 06:40] LABS: ALV-art Gradient 606.175 mmHg (0-20); Puncture Site RRA
[2021-03-03] MEDS ORDERED: Vecuronium 10 MG VIAL ONE (06:40)
[2021-03-03] MEDS: Midazolam In 0.9 % NaCl/PF 100 ML IVPB PRN ×2 (06:45→19:40)
[2021-03-03] MEDS: Sterile Water 10 ML ONE (06:47)
[2021-03-03] MEDS: Enoxaparin Sodium 40 MG/0.4 ML SYRINGE SC SCH ×2 (08:30→21:39)
[2021-03-03] MEDS: Senokot S 8.6-50 MG TAB PO SCH ×2 (08:31→21:39)
[2021-03-03] MEDS: Spironolactone 25 MG TAB PO SCH (08:31)
[2021-03-03] MEDS: Polyethylene Glycol 3350 17 GM Packet PO SCH (08:31)
[2021-03-03] MEDS: Furosemide 40 MG/4 ML VIAL SLOW IVP SCH (08:31)
[2021-03-03] MEDS: Pantoprazole 40 MG VIAL IVP SCH (08:34)
[2021-03-03] MEDS: Acetaminophen 325 MG TAB PO PRN ×2 (09:20→17:57)
[2021-03-03] MEDS: methylPREDNISolone Sod Succ 40 MG VIAL IVP SCH ×2 (13:12→17:57)
[2021-03-03] MEDS: Azithromycin 500 MG in Sodium Chloride 0.9% 250 ML 250 ML IVPB SCH (16:40)
[2021-03-03] MEDS ORDERED: Sterile Water 10 ML ONE (22:09)
[2021-03-03] MEDS: Vecuronium 10 MG VIAL IV PRN (22:18)
[2021-03-03] MEDS: Sodium Acetate 2 mEq/ml 40 MEQ, Sodium Chloride 30 MEQ, Potassium Chloride 20 MEQ, Pota... IV SCH (22:23)
[2021-03-04] MEDS: methylPREDNISolone Sod Succ 40 MG VIAL IVP SCH ×5 (00:22→23:37)
[2021-03-04] MEDS: levETIRAcetam in NS 500 MG in Premix Bag 1 BAG IVPB SCH ×2 (00:22→12:45)
[2021-03-04] MEDS: Vecuronium 10 MG VIAL IV PRN ×8 (02:50→19:30)
[2021-03-04] MEDS: Sterile Water 10 ML ONE ×2 (02:50→19:30)
[2021-03-04] MEDS: Metoclopramide HCl 10 MG/2 ML VIAL IVP SCH ×4 (04:27→19:43)
[2021-03-04] MEDS: MEROPENEM 1 GM/50 ML 1 GM in Premix Bag 1 BAG IVPB SCH (04:27)
[2021-03-04 04:40] LABS: #Lymphocytes 0.3 thou/uL (1.20-3.40); #Monocytes 0.1 thou/uL (0.11-0.59); %Basophils 0.1 % (0.0-1.0); %Eosinophils 0.2 % (0.0-10.0); %Lymphocytes 4.4 % (21.0-51.0); %Monocytes 1.9 % (0.0-10.0); %Neutrophils 93.4 % (42.0-75.0); Hemoglobin 9.3 g/dL (14.0-18.0); Mean Corpuscular HGB CONC 32.3 g/dL (32.0-36.0); Mean Corpuscular Hemoglobin 28.9 pg (27.0-31.0); Mean Corpuscular Volume 89.3 fL (78.0-98.0); Platelet Count 132 thou/uL (130-400); RBC Distribution Width 12.7 % (11.5-14.5); Red Blood Cell (RBC) Count 3.22 mill/uL (4.70-6.10); White Blood Cell (WBC) Count 6.4 thou/uL (4.8-10.8)
[2021-03-04 04:51] LABS: Anion Gap 9 mmol/L (10-20); BUN (Urea Nitrogen) 21 mg/dL (8.9-20.6); Calc. Creatinine Clearance 185 mL/min (70-130); Calcium 9.5 mg/dL (7.8-10.44); Carbon Dioxide 31 mmol/L (22-29); Chloride 102 mmol/L (98-107); Glucose 199 mg/dL (70-105); Potassium 5.1 mmol/L (3.5-5.1); Sodium 137 mmol/L (136-145)
[2021-03-04] MEDS ORDERED: Sterile Water 10 ML ONE ×6 (04:55→19:29)
[2021-03-04] MEDS ORDERED: Fentanyl CADD 100 ML ONE ×2 (04:57→14:20)
[2021-03-04] MEDS: Fentanyl CADD 100 ML IV SCH ×2 (05:01→14:23)
[2021-03-04 07:07] LABS: Actual Bicarbonate (HCO3a) 28.9 mEq/L (22-28); Base Excess (BEa) 2.8 mEq/L (-2.0 to +3.0); CO2 Tension 51.8 mmHg (35.0-45.0); Calcium, Ionized (arterial) 1.33 mmol/L (1.12-1.30); Carboxyhemoglobin (COHb) 0.3 gm% (0.0-3.0); Hemoglobin (Hb) 9.9 g/dL (14.0-18.0); Potassium - ABG Lab 4.88 mmol/L (3.70-5.30); pH, Arterial 7.36 (7.35-7.45)
[2021-03-04 07:55] LABS: O2 Tension (PaO2), arterial 55.2 mmHg (80.0-100.0); Puncture Site LRA
[2021-03-04] MEDS: Senokot S 8.6-50 MG TAB PO SCH ×2 (09:58→19:42)
[2021-03-04] MEDS: Furosemide 40 MG/4 ML VIAL SLOW IVP SCH (09:59)
[2021-03-04] MEDS: Enoxaparin Sodium 40 MG/0.4 ML SYRINGE SC SCH ×2 (09:59→19:39)
[2021-03-04] MEDS: Polyethylene Glycol 3350 17 GM Packet PO SCH (09:59)
[2021-03-04] MEDS: Spironolactone 25 MG TAB PO SCH (10:03)
[2021-03-04] MEDS: Pantoprazole 40 MG VIAL IVP SCH (10:04)
[2021-03-04] MEDS: Lorazepam 2 MG/ML VIAL SLOW IVP PRN ×3 (11:29→17:11)
[2021-03-04] MEDS ORDERED: VANCOMYCIN 2 GRAM/400 ML BAG 2 GM in Premix Bag 1 BAG IVPB SCH (11:30)
[2021-03-04] MEDS: Micafungin 100 MG in Sodium Chloride 0.9% 100 ML IVPB SCH (11:46)
[2021-03-04] MEDS ORDERED: Meropenem 1 GM in Sodium Chloride 0.9% 100 ML IVPB SCH (12:00)
[2021-03-04] MEDS: Dexmedetomidine 1,000 MCG in Sodium Chloride 0.9% 250 ML 240 ML IVPB SCH (15:55)
[2021-03-04] MEDS: Azithromycin 500 MG in Sodium Chloride 0.9% 250 ML 250 ML IVPB SCH (15:56)
[2021-03-04] MEDS: fentaNYL 50 mcg/hour Patch TD SCH (16:15)
[2021-03-04] MEDS ORDERED: MEROPENEM 1 GM/50 ML 1 GM in Premix Bag 1 BAG IVPB SCH (20:00)
[2021-03-04] MEDS: Vancomycin 1.5 GRAM/300 ML BAG 1.5 GM in Premix Bag 1 BAG IVPB SCH (20:03)
[2021-03-04] MEDS ORDERED: Fat Emulsion 250 ML, Multivitamins, Adult 10 ML, TRACE ELEMENT CONCENTRATE 1 ML in D15W... IV SCH (22:00)
[2021-03-04] MEDS: Midazolam In 0.9 % NaCl/PF 100 ML IVPB PRN (23:37)
[2021-03-05] MEDS: Vecuronium 10 MG VIAL IV PRN ×9 (00:13→23:24)
[2021-03-05] MEDS: Lorazepam 2 MG/ML VIAL SLOW IVP PRN ×4 (00:13→20:10)
[2021-03-05] MEDS: Fentanyl CADD 100 ML IV SCH ×3 (00:15→20:10)
[2021-03-05] MEDS: levETIRAcetam in NS 500 MG in Premix Bag 1 BAG IVPB SCH ×2 (00:49→12:51)
[2021-03-05] MEDS ORDERED: Sterile Water 10 ML ONE ×6 (01:49→23:22)
[2021-03-05] MEDS: Sterile Water 10 ML ONE ×3 (01:52→05:43)
[2021-03-05] MEDS: Metoclopramide HCl 10 MG/2 ML VIAL IVP SCH ×4 (02:59→21:45)
[2021-03-05] MEDS: Vancomycin 1.5 GRAM/300 ML BAG 1.5 GM in Premix Bag 1 BAG IVPB SCH (03:46)
[2021-03-05] MEDS: Meropenem 1 GM in Sodium Chloride 0.9% 100 ML IVPB SCH ×3 (03:46→20:50)
[2021-03-05 04:35] LABS: #Lymphocytes 0.4 thou/uL (1.20-3.40); #Monocytes 0.2 thou/uL (0.11-0.59); #Neutrophils 7.3 thou/uL (1.40-6.50); %Eosinophils 0.2 % (0.0-10.0); %Lymphocytes 4.8 % (21.0-51.0); Hemoglobin 9.4 g/dL (14.0-18.0); Mean Corpuscular HGB CONC 33.6 g/dL (32.0-36.0); Mean Corpuscular Hemoglobin 29.8 pg (27.0-31.0); Mean Corpuscular Volume 88.6 fL (78.0-98.0); Mean Platelet Volume 9.4 fL (7.4-10.4); Platelet Count 150 thou/uL (130-400); RBC Distribution Width 12.6 % (11.5-14.5); Red Blood Cell (RBC) Count 3.16 mill/uL (4.70-6.10)
[2021-03-05 04:57] LABS: Anion Gap 11 mmol/L (10-20); BUN (Urea Nitrogen) 24 mg/dL (8.9-20.6); Calc. Creatinine Clearance 191 mL/min (70-130); Carbon Dioxide 27 mmol/L (22-29); Chloride 101 mmol/L (98-107); Glucose 279 mg/dL (70-105); Potassium 4.5 mmol/L (3.5-5.1); Sodium 134 mmol/L (136-145)
[2021-03-05] MEDS: methylPREDNISolone Sod Succ 40 MG VIAL IVP SCH ×3 (05:29→17:07)
[2021-03-05] MEDS: Dexmedetomidine 1,000 MCG in Sodium Chloride 0.9% 250 ML 240 ML IVPB SCH (06:18)
[2021-03-05 07:31] LABS: Actual Bicarbonate (HCO3a) 30.3 mEq/L (22-28); Base Excess (BEa) 4.8 mEq/L (-2.0 to +3.0); CO2 Tension 49.5 mmHg (35.0-45.0); Calcium, Ionized (arterial) 1.28 mmol/L (1.12-1.30); Carboxyhemoglobin (COHb) 0.3 gm% (0.0-3.0); Hemoglobin (Hb) 10.2 g/dL (14.0-18.0); Potassium - ABG Lab 4.63 mmol/L (3.70-5.30); pH, Arterial 7.41 (7.35-7.45)
[2021-03-05 07:47] LABS: Puncture Site LRA
[2021-03-05 07:48] LABS: ALV-art Gradient 574.735 mmHg (0-20)
[2021-03-05] MEDS: Polyethylene Glycol 3350 17 GM Packet PO SCH (08:28)
[2021-03-05] MEDS: Senokot S 8.6-50 MG TAB PO SCH ×2 (08:28→21:43)
[2021-03-05] MEDS: Enoxaparin Sodium 40 MG/0.4 ML SYRINGE SC SCH ×2 (08:28→21:43)
[2021-03-05] MEDS: Pantoprazole 40 MG GRANULES PACKET PER TUBE SCH (09:47)
[2021-03-05] MEDS: Micafungin 100 MG in Sodium Chloride 0.9% 100 ML IVPB SCH (11:00)
[2021-03-05 11:23] LABS: Vancomycin, Trough 22.2 ug/mL
[2021-03-05] MEDS: VANCOMYCIN 1.25 GM/250 ML BAG 1.25 GM in Premix Bag 1 BAG IVPB SCH ×2 (12:04→20:50)
[2021-03-05] MEDS: Midazolam In 0.9 % NaCl/PF 100 ML IVPB PRN ×2 (12:12→22:11)
[2021-03-05] MEDS ORDERED: HumaLOG 300 UNITS/3 ML VIAL SC PRN (14:27)
[2021-03-05] MEDS ORDERED: Dextrose 5% in Water 1,000 ML IV PRN (14:27)
[2021-03-05] MEDS ORDERED: Dextrose 50% Abboject 50 ML SYRINGE SLOW IVP PRN (14:27)
[2021-03-05] MEDS: Azithromycin 500 MG in Sodium Chloride 0.9% 250 ML 250 ML IVPB SCH (15:04)
[2021-03-05] MEDS: Insulin Regular 300 UNITS/3 ML VIAL SC PRN ×2 (15:49→22:51)
[2021-03-05] MEDS ORDERED: Fentanyl CADD 100 ML ONE (20:07)
[2021-03-05] MEDS ORDERED: Multivitamins, Adult 10 ML, TRACE ELEMENT CONCENTRATE 1 ML in D15W-AA 5% with Lytes 2,0... IV SCH (22:00)
[2021-03-06] MEDS: levETIRAcetam in NS 500 MG in Premix Bag 1 BAG IVPB SCH ×2 (01:42→12:31)
[2021-03-06] MEDS: Vecuronium 10 MG VIAL IV PRN ×8 (02:38→23:32)
[2021-03-06] MEDS: Metoclopramide HCl 10 MG/2 ML VIAL IVP SCH ×4 (02:42→21:44)
[2021-03-06] MEDS: Meropenem 1 GM in Sodium Chloride 0.9% 100 ML IVPB SCH ×3 (04:00→20:13)
[2021-03-06] MEDS: Insulin Regular 300 UNITS/3 ML VIAL SC PRN ×4 (04:01→22:34)
[2021-03-06] MEDS: VANCOMYCIN 1.25 GM/250 ML BAG 1.25 GM in Premix Bag 1 BAG IVPB SCH ×2 (04:01→12:13)
[2021-03-06 04:38] LABS: #Lymphocytes 0.3 thou/uL (1.20-3.40); #Monocytes 0.5 thou/uL (0.11-0.59); #Neutrophils 11.5 thou/uL (1.40-6.50); %Eosinophils 0.2 % (0.0-10.0); %Lymphocytes 2.7 % (21.0-51.0); %Neutrophils 93.1 % (42.0-75.0); Hemoglobin 10.1 g/dL (14.0-18.0); Mean Corpuscular HGB CONC 33.7 g/dL (32.0-36.0); Mean Corpuscular Hemoglobin 29.9 pg (27.0-31.0); Mean Corpuscular Volume 88.9 fL (78.0-98.0); Platelet Count 211 thou/uL (130-400); RBC Distribution Width 12.9 % (11.5-14.5); Red Blood Cell (RBC) Count 3.38 mill/uL (4.70-6.10); White Blood Cell (WBC) Count 12.3 thou/uL (4.8-10.8)
[2021-03-06] MEDS: Lorazepam 2 MG/ML VIAL SLOW IVP PRN ×3 (04:45→20:08)
[2021-03-06] MEDS ORDERED: Fentanyl CADD 100 ML ONE ×2 (04:47→20:26)
[2021-03-06] MEDS: Fentanyl CADD 100 ML IV SCH ×3 (04:50→20:36)
[2021-03-06 04:54] LABS: Anion Gap 9 mmol/L (10-20); BUN (Urea Nitrogen) 26 mg/dL (8.9-20.6); Calc. Creatinine Clearance 168 mL/min (70-130); Calcium 9.7 mg/dL (7.8-10.44); Carbon Dioxide 33 mmol/L (22-29); Chloride 100 mmol/L (98-107); Glucose 338 mg/dL (70-105); Potassium 4.5 mmol/L (3.5-5.1); Sodium 137 mmol/L (136-145)
[2021-03-06] MEDS: methylPREDNISolone Sod Succ 40 MG VIAL IVP SCH ×5 (05:58→23:31)
[2021-03-06] MEDS ORDERED: Sterile Water 10 ML ONE ×2 (06:41→17:31)
[2021-03-06 07:11] LABS: Base Excess (BEa) 5.9 mEq/L (-2.0 to +3.0); Calcium, Ionized (arterial) 1.33 mmol/L (1.12-1.30); Carboxyhemoglobin (COHb) 0.1 gm% (0.0-3.0); Hemoglobin (Hb) 10.8 g/dL (14.0-18.0); O2 Tension (PaO2), arterial 60.6 mmHg (80.0-100.0); Potassium - ABG Lab 4.26 mmol/L (3.70-5.30); pH, Arterial 7.39 (7.35-7.45)
[2021-03-06] MEDS: Midazolam In 0.9 % NaCl/PF 100 ML IVPB PRN ×2 (07:26→21:35)
[2021-03-06 07:53] LABS: Puncture Site RRA
[2021-03-06] MEDS: Enoxaparin Sodium 40 MG/0.4 ML SYRINGE SC SCH ×2 (08:00→21:43)
[2021-03-06] MEDS: Senokot S 8.6-50 MG TAB PO SCH ×2 (08:00→21:43)
[2021-03-06] MEDS: Polyethylene Glycol 3350 17 GM Packet PO SCH (08:00)
[2021-03-06] MEDS: Pantoprazole 40 MG GRANULES PACKET PER TUBE SCH (08:01)
[2021-03-06] MEDS: Micafungin 100 MG in Sodium Chloride 0.9% 100 ML IVPB SCH (10:45)
[2021-03-06 11:24] LABS: Vancomycin, Trough 27.1 ug/mL
[2021-03-06] MEDS: Fat Emulsion 250 ML IVPB SCH (14:27)
[2021-03-06] MEDS: Multivitamins, Adult 10 ML, TRACE ELEMENT CONCENTRATE 1 ML in D15W-AA 5% with Lytes 2,0... IV SCH (14:27)
[2021-03-06] MEDS: Azithromycin 500 MG in Sodium Chloride 0.9% 250 ML 250 ML IVPB SCH (15:33)
[2021-03-06] MEDS: Vancomycin 1 GM in Premix Bag 1 BAG IVPB SCH (20:55)
[2021-03-07] MEDS: levETIRAcetam in NS 500 MG in Premix Bag 1 BAG IVPB SCH ×2 (01:18→14:47)
[2021-03-07] MEDS: Metoclopramide HCl 10 MG/2 ML VIAL IVP SCH ×4 (02:50→21:48)
[2021-03-07] MEDS: Lorazepam 2 MG/ML VIAL SLOW IVP PRN ×5 (03:53→23:15)
[2021-03-07] MEDS: Vecuronium 10 MG VIAL IV PRN ×7 (03:53→23:14)
[2021-03-07] MEDS: Insulin Regular 300 UNITS/3 ML VIAL SC PRN ×4 (03:54→22:12)
[2021-03-07] MEDS ORDERED: Fentanyl CADD 100 ML ONE ×3 (04:24→22:18)
[2021-03-07] MEDS: Fentanyl CADD 100 ML IV SCH ×3 (04:27→22:38)
[2021-03-07 04:36] LABS: Anion Gap 8 mmol/L (10-20); BUN (Urea Nitrogen) 32 mg/dL (8.9-20.6); Calc. Creatinine Clearance 176 mL/min (70-130); Calcium 9.4 mg/dL (7.8-10.44); Carbon Dioxide 33 mmol/L (22-29); Chloride 101 mmol/L (98-107); Glucose 349 mg/dL (70-105); Potassium 4.6 mmol/L (3.5-5.1); Sodium 137 mmol/L (136-145)
[2021-03-07 04:40] LABS: Hemoglobin 8.8 g/dL (14.0-18.0); Mean Corpuscular HGB CONC 33.7 g/dL (32.0-36.0); Mean Corpuscular Hemoglobin 29.7 pg (27.0-31.0); Mean Platelet Volume 9.1 fL (7.4-10.4); Platelet Count 191 thou/uL (130-400); RBC Distribution Width 12.9 % (11.5-14.5); Red Blood Cell (RBC) Count 2.98 mill/uL (4.70-6.10); White Blood Cell (WBC) Count 9.4 thou/uL (4.8-10.8)
[2021-03-07] MEDS: Vancomycin 1 GM in Premix Bag 1 BAG IVPB SCH ×3 (04:40→20:30)
[2021-03-07] MEDS: Meropenem 1 GM in Sodium Chloride 0.9% 100 ML IVPB SCH ×3 (04:40→20:49)
[2021-03-07 05:07] LABS: Band 6 % (5-11); Lymphocytes 3 % (21-51); MDiff Complete? YES; Metamyelocyte 1 % (0-0); Monocytes 3 % (0-10); Myelocyte 1 % (0-0); Neutrophil 86 % (42-75)
[2021-03-07] MEDS: methylPREDNISolone Sod Succ 40 MG VIAL IVP SCH ×3 (05:35→17:09)
[2021-03-07] MEDS: Polyethylene Glycol 3350 17 GM Packet PO SCH (08:15)
[2021-03-07] MEDS: Senokot S 8.6-50 MG TAB PO SCH ×2 (08:15→21:48)
[2021-03-07] MEDS: Pantoprazole 40 MG GRANULES PACKET PER TUBE SCH (08:15)
[2021-03-07] MEDS: Enoxaparin Sodium 40 MG/0.4 ML SYRINGE SC SCH ×2 (08:15→21:48)
[2021-03-07] MEDS: Micafungin 100 MG in Sodium Chloride 0.9% 100 ML IVPB SCH (10:05)
[2021-03-07] MEDS: Midazolam In 0.9 % NaCl/PF 100 ML IVPB PRN ×2 (10:25→23:33)
[2021-03-07] MEDS: Multivitamins, Adult 10 ML, TRACE ELEMENT CONCENTRATE 1 ML in D15W-AA 5% with Lytes 2,0... IV SCH (14:31)
[2021-03-07] MEDS: Azithromycin 500 MG in Sodium Chloride 0.9% 250 ML 250 ML IVPB SCH (15:01)
[2021-03-07] MEDS ORDERED: Furosemide 40 MG/4 ML VIAL SLOW IVP SCH ×2 (15:45→23:00)
[2021-03-07] MEDS: fentaNYL 50 mcg/hour Patch TD SCH (16:01)
[2021-03-07 19:37] LABS: Vancomycin, Trough 22.6 ug/mL
[2021-03-07] MEDS: Vancomycin HCl 750 MG in Sodium Chloride 0.9% 250 ML 250 ML IVPB SCH (21:47)
[2021-03-08] MEDS: levETIRAcetam in NS 500 MG in Premix Bag 1 BAG IVPB SCH ×2 (01:09→12:35)
[2021-03-08] MEDS: methylPREDNISolone Sod Succ 40 MG VIAL IVP SCH ×5 (01:09→23:55)
[2021-03-08] MEDS: Vecuronium 10 MG VIAL IV PRN ×6 (02:23→14:46)
[2021-03-08] MEDS: Metoclopramide HCl 10 MG/2 ML VIAL IVP SCH ×4 (02:23→20:14)
[2021-03-08] MEDS: Insulin Regular 300 UNITS/3 ML VIAL SC PRN ×4 (04:09→22:07)
[2021-03-08] MEDS: Meropenem 1 GM in Sodium Chloride 0.9% 100 ML IVPB SCH ×3 (04:19→20:15)
[2021-03-08 05:00] LABS: Anion Gap 10 mmol/L (10-20); BUN (Urea Nitrogen) 38 mg/dL (8.9-20.6); Calc. Creatinine Clearance 173 mL/min (70-130); Calcium 9.8 mg/dL (7.8-10.44); Carbon Dioxide 34 mmol/L (22-29); Chloride 97 mmol/L (98-107); Glucose 417 mg/dL (70-105); Potassium 4.9 mmol/L (3.5-5.1); Sodium 136 mmol/L (136-145)
[2021-03-08] MEDS: Vancomycin HCl 750 MG in Sodium Chloride 0.9% 250 ML 250 ML IVPB SCH ×3 (06:15→21:27)
[2021-03-08 06:29] LABS: Band 15 % (5-11); Hemoglobin 9.4 g/dL (14.0-18.0); Lymphocytes 6 % (21-51); MDiff Complete? YES; Mean Corpuscular HGB CONC 33.5 g/dL (32.0-36.0); Mean Corpuscular Hemoglobin 29.8 pg (27.0-31.0); Mean Corpuscular Volume 88.8 fL (78.0-98.0); Mean Platelet Volume 9.2 fL (7.4-10.4); Monocytes 1 % (0-10); Neutrophil 78 % (42-75); Platelet Count 217 thou/uL (130-400); RBC Distribution Width 13.1 % (11.5-14.5); Red Blood Cell (RBC) Count 3.16 mill/uL (4.70-6.10); White Blood Cell (WBC) Count 9.3 thou/uL (4.8-10.8)
[2021-03-08] MEDS: Lorazepam 2 MG/ML VIAL SLOW IVP PRN ×5 (06:32→23:55)
[2021-03-08] MEDS ORDERED: Fentanyl CADD 100 ML ONE (06:37)
[2021-03-08] MEDS: Fentanyl CADD 100 ML IV SCH ×2 (06:41→16:04)
[2021-03-08] MEDS: Senokot S 8.6-50 MG TAB PO SCH ×2 (07:39→20:14)
[2021-03-08] MEDS: Pantoprazole 40 MG GRANULES PACKET PER TUBE SCH (07:39)
[2021-03-08] MEDS: Enoxaparin Sodium 40 MG/0.4 ML SYRINGE SC SCH (07:40)
[2021-03-08] MEDS: Polyethylene Glycol 3350 17 GM Packet PO SCH (07:40)
[2021-03-08] MEDS: Micafungin 100 MG in Sodium Chloride 0.9% 100 ML IVPB SCH (09:59)
[2021-03-08] MEDS: Midazolam In 0.9 % NaCl/PF 100 ML IVPB PRN ×2 (11:17→23:21)
[2021-03-08] MEDS ORDERED: Lantus 1000 UNITS/10 ML VIAL SC SCH ×2 (12:00→21:00)
[2021-03-08] MEDS: Multivitamins, Adult 10 ML, TRACE ELEMENT CONCENTRATE 1 ML in D15W-AA 5% with Lytes 2,0... IV SCH (13:53)
[2021-03-08] MEDS: Azithromycin 500 MG in Sodium Chloride 0.9% 250 ML 250 ML IVPB SCH (13:53)
[2021-03-08] MEDS ORDERED: Furosemide 40 MG/4 ML VIAL IVP SCH (14:30)
[2021-03-08] MEDS: Albuterol Sulfate 2.5 mg/3 ml Neb NEB SCH ×3 (15:14→22:58)
[2021-03-08] MEDS: Fentanyl CADD 100 ML ONE ×2 (16:03→16:04)
[2021-03-08] MEDS ORDERED: Albuterol Sulfate 1.25 MG/3 ML NEB ONE (19:31)
[2021-03-08] MEDS: Enoxaparin Sodium 80 MG/0.8 ML SYRINGE SC SCH (20:13)
[2021-03-08] MEDS: Pantoprazole 40 MG VIAL IVP SCH (20:36)
[2021-03-08 20:51] LABS: Vancomycin, Trough 16.5 ug/mL
[2021-03-09] MEDS: levETIRAcetam in NS 500 MG in Premix Bag 1 BAG IVPB SCH ×2 (00:36→12:03)
[2021-03-09] MEDS: Fentanyl CADD 100 ML IV SCH ×3 (02:04→21:16)
[2021-03-09] MEDS: Albuterol Sulfate 2.5 mg/3 ml Neb NEB SCH ×6 (02:22→22:24)
[2021-03-09] MEDS: Meropenem 1 GM in Sodium Chloride 0.9% 100 ML IVPB SCH ×3 (03:39→20:52)
[2021-03-09] MEDS: Metoclopramide HCl 10 MG/2 ML VIAL IVP SCH ×4 (03:40→20:58)
[2021-03-09] MEDS: Insulin Regular 300 UNITS/3 ML VIAL SC PRN ×3 (04:27→16:35)
[2021-03-09 04:57] LABS: Anion Gap 9 mmol/L (10-20); BUN (Urea Nitrogen) 39 mg/dL (8.9-20.6); Calc. Creatinine Clearance 174 mL/min (70-130); Calcium 9.3 mg/dL (7.8-10.44); Carbon Dioxide 32 mmol/L (22-29); Chloride 98 mmol/L (98-107); Glucose 392 mg/dL (70-105); Potassium 5.1 mmol/L (3.5-5.1); Sodium 134 mmol/L (136-145)
[2021-03-09 05:01] LABS: Hemoglobin 8.5 g/dL (14.0-18.0); Mean Corpuscular HGB CONC 33.5 g/dL (32.0-36.0); Mean Corpuscular Hemoglobin 29.4 pg (27.0-31.0); Mean Corpuscular Volume 87.7 fL (78.0-98.0); Mean Platelet Volume 8.8 fL (7.4-10.4); Platelet Count 201 thou/uL (130-400); RBC Distribution Width 13.3 % (11.5-14.5); Red Blood Cell (RBC) Count 2.87 mill/uL (4.70-6.10)
[2021-03-09] MEDS: methylPREDNISolone Sod Succ 40 MG VIAL IVP SCH ×4 (05:52→23:23)
[2021-03-09] MEDS: Vancomycin HCl 750 MG in Sodium Chloride 0.9% 250 ML 250 ML IVPB SCH ×3 (05:52→21:34)
[2021-03-09] MEDS: Furosemide 40 MG/4 ML VIAL SLOW IVP SCH ×2 (05:52→14:39)
[2021-03-09 06:06] LABS: Band 8 % (5-11); Lymphocytes 4 % (21-51); MDiff Complete? YES; Monocytes 1 % (0-10); Neutrophil 87 % (42-75)
[2021-03-09 07:20] LABS: Actual Bicarbonate (HCO3a) 29.6 mEq/L (22-28); Base Excess (BEa) 5.7 mEq/L (-2.0 to +3.0); CO2 Tension 40.5 mmHg (35.0-45.0); Calcium, Ionized (arterial) 1.26 mmol/L (1.12-1.30); Carboxyhemoglobin (COHb) 0.4 gm% (0.0-3.0); Hemoglobin (Hb) 9.6 g/dL (14.0-18.0); Potassium - ABG Lab 4.72 mmol/L (3.70-5.30); pH, Arterial 7.48 (7.35-7.45)
[2021-03-09] MEDS: Vecuronium 10 MG VIAL IV PRN (07:25)
[2021-03-09 07:40] LABS: ALV-art Gradient 321.575 mmHg (0-20); O2 Tension (PaO2), arterial 55.6 mmHg (80.0-100.0); Puncture Site LRA
[2021-03-09] MEDS: Enoxaparin Sodium 80 MG/0.8 ML SYRINGE SC SCH ×2 (08:52→20:53)
[2021-03-09] MEDS: Lorazepam 2 MG/ML VIAL SLOW IVP PRN ×3 (08:54→20:45)
[2021-03-09] MEDS: Polyethylene Glycol 3350 17 GM Packet PO SCH (08:55)
[2021-03-09] MEDS: Senokot S 8.6-50 MG TAB PO SCH ×2 (08:55→20:51)
[2021-03-09] MEDS ORDERED: Lantus 1000 UNITS/10 ML VIAL SC SCH (09:00)
[2021-03-09] MEDS: Pantoprazole 40 MG VIAL IVP SCH ×2 (09:54→20:54)
[2021-03-09] MEDS: Micafungin 100 MG in Sodium Chloride 0.9% 100 ML IVPB SCH (09:56)
[2021-03-09] MEDS: Midazolam In 0.9 % NaCl/PF 100 ML IVPB PRN ×2 (11:11→23:23)
[2021-03-09] MEDS: Azithromycin 500 MG in Sodium Chloride 0.9% 250 ML 250 ML IVPB SCH (15:05)
[2021-03-09] MEDS: fentaNYL 50 mcg/hour Patch TD SCH (15:05)
[2021-03-09] MEDS: Fat Emulsion 250 ML IVPB SCH (15:20)
[2021-03-09] MEDS: Multivitamins, Adult 10 ML, TRACE ELEMENT CONCENTRATE 1 ML in D15W-AA 5% with Lytes 2,0... IV SCH (15:20)
[2021-03-09 20:25] LABS: Vancomycin, Trough 17.7 ug/mL
[2021-03-09] MEDS ORDERED: Morphine 2 MG/ML VIAL SLOW IVP PRN (20:45)
[2021-03-09] MEDS ORDERED: Propofol BOLUS 1,000 MG/100 ML VIAL IV PRN (20:45)
[2021-03-09] MEDS ORDERED: Propofol 1,000 MG/100 ML VIAL IV PRN (20:45)
[2021-03-09] MEDS ORDERED: DISCONTINUE PREVIOUS NARCOTIC PAIN MEDICATIONS AND BENZODIAZEPINES FS SCH (20:45)
[2021-03-09] MEDS ORDERED: Fentanyl BOLUS 250 ML IVPB PRN (20:45)
[2021-03-09] MEDS: Lantus 1000 UNITS/10 ML VIAL SC SCH (20:54)
[2021-03-10] MEDS: levETIRAcetam in NS 500 MG in Premix Bag 1 BAG IVPB SCH ×2 (01:48→12:42)
[2021-03-10] MEDS: Lorazepam 2 MG/ML VIAL SLOW IVP PRN ×2 (01:48→07:39)
[2021-03-10] MEDS: Albuterol Sulfate 2.5 mg/3 ml Neb NEB SCH ×6 (03:20→22:04)
[2021-03-10] MEDS: Metoclopramide HCl 10 MG/2 ML VIAL IVP SCH ×4 (04:10→20:27)
[2021-03-10] MEDS: Meropenem 1 GM in Sodium Chloride 0.9% 100 ML IVPB SCH ×3 (04:10→20:02)
[2021-03-10] MEDS: Insulin Regular 300 UNITS/3 ML VIAL SC PRN ×2 (04:24→10:01)
[2021-03-10] MEDS: Vancomycin HCl 750 MG in Sodium Chloride 0.9% 250 ML 250 ML IVPB SCH ×3 (04:32→20:32)
[2021-03-10 04:50] LABS: Hemoglobin 9.5 g/dL (14.0-18.0); Mean Corpuscular HGB CONC 33.7 g/dL (32.0-36.0); Mean Corpuscular Hemoglobin 29.4 pg (27.0-31.0); Mean Corpuscular Volume 87.4 fL (78.0-98.0); Platelet Count 206 thou/uL (130-400); RBC Distribution Width 13.6 % (11.5-14.5); Red Blood Cell (RBC) Count 3.21 mill/uL (4.70-6.10); White Blood Cell (WBC) Count 5.8 thou/uL (4.8-10.8)
[2021-03-10 05:00] LABS: Anion Gap 10 mmol/L (10-20); BUN (Urea Nitrogen) 41 mg/dL (8.9-20.6); Calc. Creatinine Clearance 188 mL/min (70-130); Calcium 9.2 mg/dL (7.8-10.44); Carbon Dioxide 34 mmol/L (22-29); Chloride 100 mmol/L (98-107); Glucose 171 mg/dL (70-105); Potassium 4.9 mmol/L (3.5-5.1); Sodium 139 mmol/L (136-145)
[2021-03-10 05:26] LABS: Band 14 % (5-11); Lymphocytes 5 % (21-51); MDiff Complete? YES; Monocytes 4 % (0-10); Neutrophil 77 % (42-75)
[2021-03-10 05:58] LABS: Phosphorus 3.9 mg/dL (2.3-4.7)
[2021-03-10 05:59] LABS: Magnesium 2.5 mg/dL (1.6-2.6)
[2021-03-10] MEDS: methylPREDNISolone Sod Succ 40 MG VIAL IVP SCH ×3 (06:00→16:53)
[2021-03-10] MEDS: Furosemide 40 MG/4 ML VIAL SLOW IVP SCH ×2 (06:00→12:51)
[2021-03-10] MEDS: Fentanyl CADD 100 ML IV SCH ×2 (06:47→20:02)
[2021-03-10 07:51] LABS: Actual Bicarbonate (HCO3a) 29.4 mEq/L (22-28); Base Excess (BEa) 6.6 mEq/L (-2.0 to +3.0); CO2 Tension 35.5 mmHg (35.0-45.0); Calcium, Ionized (arterial) 1.25 mmol/L (1.12-1.30); Carboxyhemoglobin (COHb) 0.3 gm% (0.0-3.0); Hemoglobin (Hb) 10.6 g/dL (14.0-18.0); Potassium - ABG Lab 4.44 mmol/L (3.70-5.30); pH, Arterial 7.54 (7.35-7.45)
[2021-03-10 07:53] LABS: O2 Tension (PaO2), arterial 48.4 mmHg (80.0-100.0)
[2021-03-10 07:54] LABS: Puncture Site RRA
[2021-03-10 07:55] LABS: ALV-art Gradient 299.375 mmHg (0-20)
[2021-03-10] MEDS: Polyethylene Glycol 3350 17 GM Packet PO SCH (08:18)
[2021-03-10] MEDS: Senokot S 8.6-50 MG TAB PO SCH ×2 (08:18→20:27)
[2021-03-10] MEDS: Enoxaparin Sodium 80 MG/0.8 ML SYRINGE SC SCH (08:18)
[2021-03-10] MEDS: Lantus 1000 UNITS/10 ML VIAL SC SCH ×2 (08:20→20:33)
[2021-03-10] MEDS: Pantoprazole 40 MG VIAL IVP SCH ×2 (08:24→21:00)
[2021-03-10] MEDS: Vecuronium 10 MG VIAL IV PRN (08:48)
[2021-03-10] MEDS: Dexmedetomidine 1,000 MCG in Sodium Chloride 0.9% 250 ML 240 ML IVPB SCH (08:48)
[2021-03-10] MEDS: Midazolam In 0.9 % NaCl/PF 100 ML IVPB PRN (14:34)
[2021-03-10] MEDS: Enoxaparin Sodium 60 MG/0.6 ML SYRINGE SC SCH (20:26)
[2021-03-11] MEDS: methylPREDNISolone Sod Succ 40 MG VIAL IVP SCH ×4 (00:05→17:49)
[2021-03-11] MEDS: levETIRAcetam in NS 500 MG in Premix Bag 1 BAG IVPB SCH ×2 (01:27→13:17)
[2021-03-11] MEDS: Albuterol Sulfate 2.5 mg/3 ml Neb NEB SCH ×6 (02:44→23:33)
[2021-03-11] MEDS: Meropenem 1 GM in Sodium Chloride 0.9% 100 ML IVPB SCH ×3 (03:34→20:30)
[2021-03-11] MEDS: Metoclopramide HCl 10 MG/2 ML VIAL IVP SCH ×4 (03:34→20:31)
[2021-03-11] MEDS: Insulin Regular 300 UNITS/3 ML VIAL SC PRN ×3 (03:41→16:10)
[2021-03-11 04:52] LABS: Hemoglobin 9.5 g/dL (14.0-18.0); Mean Corpuscular HGB CONC 33.9 g/dL (32.0-36.0); Mean Corpuscular Hemoglobin 29.9 pg (27.0-31.0); Mean Corpuscular Volume 88.1 fL (78.0-98.0); Mean Platelet Volume 8.9 fL (7.4-10.4); Platelet Count 215 thou/uL (130-400); RBC Distribution Width 14.3 % (11.5-14.5); Red Blood Cell (RBC) Count 3.17 mill/uL (4.70-6.10); White Blood Cell (WBC) Count 5.4 thou/uL (4.8-10.8)
[2021-03-11 05:04] LABS: Anion Gap 12 mmol/L (10-20); BUN (Urea Nitrogen) 43 mg/dL (8.9-20.6); Calc. Creatinine Clearance 160 mL/min (70-130); Calcium 9.2 mg/dL (7.8-10.44); Carbon Dioxide 29 mmol/L (22-29); Chloride 100 mmol/L (98-107); Glucose 172 mg/dL (70-105); Potassium 4.3 mmol/L (3.5-5.1); Sodium 137 mmol/L (136-145)
[2021-03-11] MEDS: Vancomycin HCl 750 MG in Sodium Chloride 0.9% 250 ML 250 ML IVPB SCH ×3 (05:04→20:33)
[2021-03-11 05:43] LABS: Band 13 % (5-11); Lymphocytes 3 % (21-51); MDiff Complete? YES; Metamyelocyte 3 % (0-0); Monocytes 3 % (0-10); Myelocyte 1 % (0-0); Neutrophil 77 % (42-75)
[2021-03-11] MEDS: Furosemide 40 MG/4 ML VIAL SLOW IVP SCH ×2 (06:15→14:32)
[2021-03-11 08:17] LABS: Actual Bicarbonate (HCO3a) 27.4 mEq/L (22-28); Base Excess (BEa) 5.3 mEq/L (-2.0 to +3.0); CO2 Tension 31.6 mmHg (35.0-45.0); Calcium, Ionized (arterial) 1.25 mmol/L (1.12-1.30); Carboxyhemoglobin (COHb) 0.3 gm% (0.0-3.0); Hemoglobin (Hb) 10.6 g/dL (14.0-18.0); Potassium - ABG Lab 4.16 mmol/L (3.70-5.30)
[2021-03-11] MEDS: Lorazepam 2 MG/ML VIAL SLOW IVP PRN ×3 (09:05→20:31)
[2021-03-11] MEDS: Pantoprazole 40 MG VIAL IVP SCH ×2 (09:07→22:02)
[2021-03-11] MEDS: Enoxaparin Sodium 60 MG/0.6 ML SYRINGE SC SCH ×2 (10:10→20:30)
[2021-03-11] MEDS: Lantus 1000 UNITS/10 ML VIAL SC SCH ×2 (10:11→22:02)
[2021-03-11] MEDS: Polyethylene Glycol 3350 17 GM Packet PO SCH (10:12)
[2021-03-11] MEDS: Senokot S 8.6-50 MG TAB PO SCH ×2 (10:12→20:31)
[2021-03-11] MEDS: Dexmedetomidine 1,000 MCG in Sodium Chloride 0.9% 250 ML 240 ML IVPB SCH (11:33)
[2021-03-11 11:52] LABS: O2 Tension (PaO2), arterial 54.7 mmHg (80.0-100.0); pH, Arterial 7.56 (7.35-7.45)
[2021-03-11 11:53] LABS: Puncture Site LRA
[2021-03-11] MEDS: Fentanyl CADD 100 ML IV SCH (14:42)
[2021-03-11 20:21] LABS: Vancomycin, Trough 22.5 ug/mL
[2021-03-12] MEDS: methylPREDNISolone Sod Succ 40 MG VIAL IVP SCH ×4 (00:16→20:49)
[2021-03-12] MEDS: levETIRAcetam in NS 500 MG in Premix Bag 1 BAG IVPB SCH ×2 (00:22→12:09)
[2021-03-12] MEDS: Albuterol Sulfate 2.5 mg/3 ml Neb NEB SCH ×6 (02:59→22:27)
[2021-03-12] MEDS: Metoclopramide HCl 10 MG/2 ML VIAL IVP SCH ×4 (04:01→20:45)
[2021-03-12] MEDS: Lorazepam 2 MG/ML VIAL SLOW IVP PRN ×4 (04:02→21:44)
[2021-03-12 04:54] LABS: Anion Gap 10 mmol/L (10-20); BUN (Urea Nitrogen) 38 mg/dL (8.9-20.6); Calc. Creatinine Clearance 172 mL/min (70-130); Calcium 9.5 mg/dL (7.8-10.44); Carbon Dioxide 32 mmol/L (22-29); Chloride 102 mmol/L (98-107); Glucose 150 mg/dL (70-105); Potassium 5.2 mmol/L (3.5-5.1); Sodium 139 mmol/L (136-145)
[2021-03-12] MEDS: Fentanyl CADD 100 ML IV SCH ×2 (05:05→21:15)
[2021-03-12 05:20] LABS: Band 7 % (5-11); Hemoglobin 10.2 g/dL (14.0-18.0); Lymphocytes 5 % (21-51); MDiff Complete? YES; Mean Corpuscular HGB CONC 34.3 g/dL (32.0-36.0); Mean Corpuscular Hemoglobin 30.4 pg (27.0-31.0); Mean Corpuscular Volume 88.6 fL (78.0-98.0); Monocytes 2 % (0-10); Neutrophil 86 % (42-75); Platelet Count 206 thou/uL (130-400); RBC Distribution Width 14.3 % (11.5-14.5); Red Blood Cell (RBC) Count 3.37 mill/uL (4.70-6.10); White Blood Cell (WBC) Count 7.7 thou/uL (4.8-10.8)
[2021-03-12] MEDS: Furosemide 40 MG/4 ML VIAL SLOW IVP SCH (06:06)
[2021-03-12 07:06] LABS: Actual Bicarbonate (HCO3a) 29.6 mEq/L (22-28); Analyzer IN Cardio ER; Base Excess (BEa) 6.1 mEq/L (-2.0 to +3.0); CO2 Tension 38.4 mmHg (35.0-45.0); Calcium, Ionized (arterial) 1.24 mmol/L (1.12-1.30); Carboxyhemoglobin (COHb) 0.3 gm% (0.0-3.0); Hemoglobin (Hb) 10.9 g/dL (14.0-18.0); O2 Tension (PaO2), arterial 64.7 mmHg (80.0-100.0); pH, Arterial 7.51 (7.35-7.45)
[2021-03-12 07:09] LABS: Puncture Site RRA
[2021-03-12] MEDS: Enoxaparin Sodium 60 MG/0.6 ML SYRINGE SC SCH ×2 (08:09→20:44)
[2021-03-12] MEDS: Vancomycin 1 GM in Premix Bag 1 BAG IVPB SCH ×2 (08:10→20:46)
[2021-03-12] MEDS: Lantus 1000 UNITS/10 ML VIAL SC SCH ×2 (08:10→21:32)
[2021-03-12] MEDS: Senokot S 8.6-50 MG TAB PO SCH ×2 (08:11→20:46)
[2021-03-12] MEDS: Polyethylene Glycol 3350 17 GM Packet PO SCH (08:11)
[2021-03-12] MEDS: Pantoprazole 40 MG VIAL IVP SCH ×2 (08:11→20:45)
[2021-03-12] MEDS ORDERED: ALPRAZolam 1 MG TAB PO SCH ×2 (10:00→15:00)
[2021-03-12] MEDS: Insulin Regular 300 UNITS/3 ML VIAL SC PRN (10:33)
[2021-03-12] MEDS ORDERED: Sulfameth/Trimethoprim DS 800-160mg TAB PO SCH (14:00)
[2021-03-12] MEDS: Dexmedetomidine 1,000 MCG in Sodium Chloride 0.9% 250 ML 240 ML IVPB SCH (15:11)
[2021-03-12] MEDS: ALPRAZolam 1 MG TAB PO SCH ×2 (15:12→20:44)
[2021-03-12] MEDS: fentaNYL 50 mcg/hour Patch TD SCH (15:12)
[2021-03-13] MEDS: levETIRAcetam in NS 500 MG in Premix Bag 1 BAG IVPB SCH ×2 (01:29→11:47)
[2021-03-13] MEDS: Albuterol Sulfate 2.5 mg/3 ml Neb NEB SCH ×6 (02:31→22:34)
[2021-03-13] MEDS: Metoclopramide HCl 10 MG/2 ML VIAL IVP SCH ×4 (03:01→21:48)
[2021-03-13] MEDS: methylPREDNISolone Sod Succ 40 MG VIAL IVP SCH ×3 (03:01→21:49)
[2021-03-13 05:17] LABS: Band 11 % (5-11); Hemoglobin 9.4 g/dL (14.0-18.0); Hypochromia SLIGHT = 6-15 cells (100X) (0-5/hpf); Lymphocytes 7 % (21-51); MDiff Complete? YES; Mean Corpuscular HGB CONC 34.5 g/dL (32.0-36.0); Mean Corpuscular Hemoglobin 30.6 pg (27.0-31.0); Mean Corpuscular Volume 88.8 fL (78.0-98.0); Mean Platelet Volume 9.2 fL (7.4-10.4); Monocytes 3 % (0-10); Neutrophil 79 % (42-75); Platelet Count 160 thou/uL (130-400); Platelet Morphology Comment Appears Adequate; RBC Distribution Width 14.4 % (11.5-14.5); Red Blood Cell (RBC) Count 3.05 mill/uL (4.70-6.10); White Blood Cell (WBC) Count 4.9 thou/uL (4.8-10.8)
[2021-03-13 05:21] LABS: Anion Gap 7 mmol/L (10-20); BUN (Urea Nitrogen) 34 mg/dL (8.9-20.6); Calc. Creatinine Clearance 200 mL/min (70-130); Calcium 8.7 mg/dL (7.8-10.44); Carbon Dioxide 32 mmol/L (22-29); Chloride 101 mmol/L (98-107); Glucose 100 mg/dL (70-105); Potassium 4.2 mmol/L (3.5-5.1); Sodium 136 mmol/L (136-145)
[2021-03-13] MEDS: Dexmedetomidine 1,000 MCG in Sodium Chloride 0.9% 250 ML 240 ML IVPB SCH (06:16)
[2021-03-13] MEDS: Lantus 1000 UNITS/10 ML VIAL SC SCH ×2 (08:12→21:54)
[2021-03-13] MEDS ORDERED: ALPRAZolam 1 MG TAB ONE ×4 (08:21→21:41)
[2021-03-13] MEDS: ALPRAZolam 1 MG TAB PO SCH ×3 (08:28→21:43)
[2021-03-13] MEDS: Enoxaparin Sodium 60 MG/0.6 ML SYRINGE SC SCH ×2 (08:28→21:18)
[2021-03-13] MEDS: Senokot S 8.6-50 MG TAB PO SCH ×2 (08:29→21:44)
[2021-03-13] MEDS: Polyethylene Glycol 3350 17 GM Packet PO SCH (08:29)
[2021-03-13] MEDS: Vancomycin 1 GM in Premix Bag 1 BAG IVPB SCH ×3 (08:29→21:19)
[2021-03-13 09:11] LABS: Vancomycin, Trough 17.5 ug/mL
[2021-03-13] MEDS: Pantoprazole 40 MG VIAL IVP SCH ×2 (09:18→21:38)
[2021-03-13] MEDS: Insulin Regular 300 UNITS/3 ML VIAL SC PRN ×2 (11:46→22:32)
[2021-03-13] MEDS: Lorazepam 2 MG/ML VIAL SLOW IVP PRN ×2 (14:44→17:34)
[2021-03-13] MEDS: Fentanyl CADD 100 ML IV SCH (14:44)
[2021-03-13] MEDS ORDERED: Metoclopramide 10 MG/10 ML UDCUP ONE ×2 (21:32→21:42)
[2021-03-14] MEDS: levETIRAcetam in NS 500 MG in Premix Bag 1 BAG IVPB SCH ×2 (00:27→13:39)
[2021-03-14] MEDS: Lorazepam 2 MG/ML VIAL SLOW IVP PRN ×3 (00:27→12:35)
[2021-03-14] MEDS: Albuterol Sulfate 2.5 mg/3 ml Neb NEB SCH ×6 (01:30→22:11)
[2021-03-14] MEDS: Metoclopramide HCl 10 MG/2 ML VIAL IVP SCH ×4 (03:14→20:17)
[2021-03-14] MEDS: methylPREDNISolone Sod Succ 40 MG VIAL IVP SCH ×3 (04:02→21:24)
[2021-03-14] MEDS: Dexmedetomidine 1,000 MCG in Sodium Chloride 0.9% 250 ML 240 ML IVPB SCH (04:37)
[2021-03-14 06:49] LABS: Hemoglobin 9.6 g/dL (14.0-18.0); Mean Corpuscular HGB CONC 34.2 g/dL (32.0-36.0); Mean Corpuscular Volume 87.7 fL (78.0-98.0); Mean Platelet Volume 9.4 fL (7.4-10.4); Platelet Count 152 thou/uL (130-400); White Blood Cell (WBC) Count 7.5 thou/uL (4.8-10.8)
[2021-03-14 06:50] LABS: Band 2 % (5-11); Lymphocytes 2 % (21-51); MDiff Complete? YES; Monocytes 4 % (0-10); Neutrophil 92 % (42-75); Platelet Morphology Comment Appears Adequate; RBC Morphology Normal
[2021-03-14 06:55] LABS: Anion Gap 8 mmol/L (10-20); BUN (Urea Nitrogen) 28 mg/dL (8.9-20.6); Calc. Creatinine Clearance 214 mL/min (70-130); Carbon Dioxide 29 mmol/L (22-29); Chloride 103 mmol/L (98-107); Glucose 129 mg/dL (70-105); Potassium 4.5 mmol/L (3.5-5.1); Sodium 135 mmol/L (136-145)
[2021-03-14 07:52] LABS: Actual Bicarbonate (HCO3a) 26.5 mEq/L (22-28); Base Excess (BEa) 3.2 mEq/L (-2.0 to +3.0); CO2 Tension 35.1 mmHg (35.0-45.0); Calcium, Ionized (arterial) 1.24 mmol/L (1.12-1.30); Carboxyhemoglobin (COHb) 0.3 gm% (0.0-3.0); O2 Tension (PaO2), arterial 110.1 mmHg (80.0-100.0); Potassium - ABG Lab 4.45 mmol/L (3.70-5.30)
[2021-03-14 08:00] LABS: ALV-art Gradient 131.225 mmHg (0-20); Puncture Site LRA
[2021-03-14] MEDS: Fentanyl CADD 100 ML IV SCH (08:45)
[2021-03-14] MEDS: Enoxaparin Sodium 60 MG/0.6 ML SYRINGE SC SCH (09:49)
[2021-03-14] MEDS: Vancomycin 1 GM in Premix Bag 1 BAG IVPB SCH ×2 (09:49→20:19)
[2021-03-14] MEDS ORDERED: Lorazepam 2 MG/ML VIAL ONE (10:00)
[2021-03-14] MEDS: Pantoprazole 40 MG VIAL IVP SCH ×2 (10:08→22:00)
[2021-03-14] MEDS ORDERED: ALPRAZolam 0.5 MG TAB PO SCH (10:45)
[2021-03-14] MEDS ORDERED: ALPRAZolam 0.5 MG TAB ONE (10:52)
[2021-03-14] MEDS: Lantus 1000 UNITS/10 ML VIAL SC SCH ×2 (13:24→21:26)
[2021-03-14] MEDS: ALPRAZolam 1 MG TAB PO SCH ×3 (13:24→20:18)
[2021-03-14] MEDS: Senokot S 8.6-50 MG TAB PO SCH ×2 (13:25→21:30)
[2021-03-14] MEDS: Polyethylene Glycol 3350 17 GM Packet PO SCH (13:25)
[2021-03-14] MEDS ORDERED: methylPREDNISolone Sod Succ 40 MG VIAL ONE (13:33)
[2021-03-14] MEDS ORDERED: levETIRAcetam 500 MG/100 ML PREMIX BAG ONE (13:35)
[2021-03-14] MEDS ORDERED: ALPRAZolam 1 MG TAB ONE ×2 (15:50→20:14)
[2021-03-14 20:47] LABS: Vancomycin, Trough 17.8 ug/mL
[2021-03-15] MEDS: levETIRAcetam in NS 500 MG in Premix Bag 1 BAG IVPB SCH (01:12)
[2021-03-15] MEDS: Albuterol Sulfate 2.5 mg/3 ml Neb NEB SCH ×6 (01:38→22:59)
[2021-03-15 04:04] LABS: Hemoglobin 10.2 g/dL (14.0-18.0); Hypochromia SLIGHT = 6-15 cells (100X) (0-5/hpf); Lymphocytes 22 % (21-51); MDiff Complete? YES; Mean Corpuscular HGB CONC 34.8 g/dL (32.0-36.0); Mean Corpuscular Hemoglobin 30.5 pg (27.0-31.0); Mean Corpuscular Volume 87.7 fL (78.0-98.0); Mean Platelet Volume 9.8 fL (7.4-10.4); Monocytes 10 % (0-10); Neutrophil 68 % (42-75); Platelet Count 127 thou/uL (130-400); Platelet Morphology Comment Appears Adequate; RBC Distribution Width 14.7 % (11.5-14.5); Red Blood Cell (RBC) Count 3.34 mill/uL (4.70-6.10); White Blood Cell (WBC) Count 5.7 thou/uL (4.8-10.8)
[2021-03-15 04:11] LABS: Anion Gap 9 mmol/L (10-20); BUN (Urea Nitrogen) 26 mg/dL (8.9-20.6); Calc. Creatinine Clearance 211 mL/min (70-130); Calcium 8.6 mg/dL (7.8-10.44); Carbon Dioxide 28 mmol/L (22-29); Chloride 100 mmol/L (98-107); Glucose 115 mg/dL (70-105); Potassium 4.2 mmol/L (3.5-5.1); Sodium 133 mmol/L (136-145)
[2021-03-15] MEDS: Metoclopramide HCl 10 MG/2 ML VIAL IVP SCH ×4 (04:28→21:29)
[2021-03-15] MEDS: Dexmedetomidine 1,000 MCG in Sodium Chloride 0.9% 250 ML 240 ML IVPB SCH ×2 (04:28→17:52)
[2021-03-15] MEDS: methylPREDNISolone Sod Succ 40 MG VIAL IVP SCH ×3 (04:29→21:29)
[2021-03-15] MEDS: Lorazepam 2 MG/ML VIAL SLOW IVP PRN ×3 (06:01→14:35)
[2021-03-15] MEDS ORDERED: Propofol 1,000 MG/100 ML VIAL IV ONE ×3 (09:39→17:50)
[2021-03-15] MEDS ORDERED: Morphine 4 MG/ML VIAL ONE (09:42)
[2021-03-15] MEDS: Lantus 1000 UNITS/10 ML VIAL SC SCH ×2 (09:59→21:46)
[2021-03-15] MEDS: Pantoprazole 40 MG VIAL IVP SCH ×3 (09:59→21:29)
[2021-03-15] MEDS: Senokot S 8.6-50 MG TAB PO SCH ×2 (09:59→21:29)
[2021-03-15] MEDS: Polyethylene Glycol 3350 17 GM Packet PO SCH (09:59)
[2021-03-15] MEDS: ALPRAZolam 1 MG TAB PO SCH ×3 (09:59→21:28)
[2021-03-15] MEDS: Fentanyl CADD 100 ML IV SCH (10:04)
[2021-03-15] MEDS: Enoxaparin Sodium 40 MG/0.4 ML SYRINGE SC SCH (10:10)
[2021-03-15] MEDS: Vancomycin 1 GM in Premix Bag 1 BAG IVPB SCH ×2 (10:10→21:28)
[2021-03-15] MEDS ORDERED: Norepinephrine 8 MG/0.9% NS 250 ML ONE (11:12)
[2021-03-15 14:52] LABS: Glucose POC Confirmation 100 mg/dl (70-105)
[2021-03-15 15:40] LABS: Actual Bicarbonate (HCO3a) 25.2 mEq/L (22-28); Base Excess (BEa) 1.1 mEq/L (-2.0 to +3.0); CO2 Tension 38.5 mmHg (35.0-45.0); Calcium, Ionized (arterial) 1.25 mmol/L (1.12-1.30); Carboxyhemoglobin (COHb) 0.6 gm% (0.0-3.0); O2 Tension (PaO2), arterial 50.3 mmHg (80.0-100.0); Potassium - ABG Lab 4.14 mmol/L (3.70-5.30); pH, Arterial 7.43 (7.35-7.45)
[2021-03-15 15:41] LABS: ALV-art Gradient 614.575 mmHg (0-20); Puncture Site LRA
[2021-03-15] MEDS: fentaNYL 50 mcg/hour Patch TD SCH (16:01)
[2021-03-15] MEDS ORDERED: Propofol BOLUS 1,000 MG/100 ML VIAL IV PRN (18:45)
[2021-03-15] MEDS ORDERED: Norepinephrine 8 MG/0.9% NS 250 ML IVPB SCH (18:45)
[2021-03-15] MEDS: Propofol 1,000 MG/100 ML VIAL IV PRN (21:45)
[2021-03-16] MEDS: Propofol 1,000 MG/100 ML VIAL IV PRN ×3 (02:44→16:16)
[2021-03-16] MEDS: Metoclopramide HCl 10 MG/2 ML VIAL IVP SCH ×4 (02:44→20:50)
[2021-03-16] MEDS: Albuterol Sulfate 2.5 mg/3 ml Neb NEB SCH ×6 (03:03→23:03)
[2021-03-16] MEDS: Dexmedetomidine 1,000 MCG in Sodium Chloride 0.9% 250 ML 240 ML IVPB SCH ×2 (03:04→13:27)
[2021-03-16 04:01] LABS: Band 18 % (5-11); Hemoglobin 10.9 g/dL (14.0-18.0); Hypochromia SLIGHT = 6-15 cells (100X) (0-5/hpf); Lymphocytes 4 % (21-51); MDiff Complete? YES; Mean Corpuscular HGB CONC 33.7 g/dL (32.0-36.0); Mean Corpuscular Hemoglobin 29.6 pg (27.0-31.0); Mean Corpuscular Volume 87.6 fL (78.0-98.0); Mean Platelet Volume 10.6 fL (7.4-10.4); Monocytes 2 % (0-10); Neutrophil 76 % (42-75); Platelet Count 112 thou/uL (130-400); Platelet Morphology Comment Appears Decreased; RBC Distribution Width 14.9 % (11.5-14.5); Red Blood Cell (RBC) Count 3.69 mill/uL (4.70-6.10); White Blood Cell (WBC) Count 17.6 thou/uL (4.8-10.8)
[2021-03-16] MEDS: methylPREDNISolone Sod Succ 40 MG VIAL IVP SCH ×3 (04:01→20:50)
[2021-03-16] MEDS: Insulin Regular 300 UNITS/3 ML VIAL SC PRN ×3 (04:01→16:28)
[2021-03-16 04:21] LABS: Anion Gap 11 mmol/L (10-20); BUN (Urea Nitrogen) 19 mg/dL (8.9-20.6); Calc. Creatinine Clearance 192 mL/min (70-130); Calcium 8.7 mg/dL (7.8-10.44); Carbon Dioxide 26 mmol/L (22-29); Chloride 102 mmol/L (98-107); Glucose 161 mg/dL (70-105); Potassium 4.1 mmol/L (3.5-5.1); Sodium 135 mmol/L (136-145)
[2021-03-16] MEDS: Fentanyl CADD 100 ML IV SCH (06:01)
[2021-03-16 07:06] LABS: Actual Bicarbonate (HCO3a) 27.3 mEq/L (22-28); Base Excess (BEa) 3.3 mEq/L (-2.0 to +3.0); CO2 Tension 39.3 mmHg (35.0-45.0); Calcium, Ionized (arterial) 1.22 mmol/L (1.12-1.30); Carboxyhemoglobin (COHb) 0.3 gm% (0.0-3.0); Hemoglobin (Hb) 10.7 g/dL (14.0-18.0); Potassium - ABG Lab 4.07 mmol/L (3.70-5.30); pH, Arterial 7.46 (7.35-7.45)
[2021-03-16 07:44] LABS: Puncture Site LRA
[2021-03-16] MEDS: ALPRAZolam 1 MG TAB PO SCH ×3 (08:59→20:49)
[2021-03-16] MEDS: Enoxaparin Sodium 40 MG/0.4 ML SYRINGE SC SCH (08:59)
[2021-03-16] MEDS: Pantoprazole 40 MG VIAL IVP SCH ×2 (09:00→22:02)
[2021-03-16] MEDS: Senokot S 8.6-50 MG TAB PO SCH ×2 (09:00→20:53)
[2021-03-16] MEDS: Polyethylene Glycol 3350 17 GM Packet PO SCH (09:00)
[2021-03-16] MEDS: Lantus 1000 UNITS/10 ML VIAL SC SCH ×2 (09:01→22:06)
[2021-03-17] MEDS: Fentanyl CADD 100 ML IV SCH ×2 (01:48→20:44)
[2021-03-17] MEDS: Dexmedetomidine 1,000 MCG in Sodium Chloride 0.9% 250 ML 240 ML IVPB SCH (01:58)
[2021-03-17] MEDS: Albuterol Sulfate 2.5 mg/3 ml Neb NEB SCH ×6 (03:22→22:04)
[2021-03-17 03:26] LABS: #Lymphocytes 0.4 thou/uL (1.20-3.40); #Monocytes 0.3 thou/uL (0.11-0.59); #Neutrophils 9.3 thou/uL (1.40-6.50); %Eosinophils 0.3 % (0.0-10.0); %Lymphocytes 3.8 % (21.0-51.0); %Monocytes 2.9 % (0.0-10.0); %Neutrophils 93.1 % (42.0-75.0); Hemoglobin 10.1 g/dL (14.0-18.0); Mean Corpuscular Hemoglobin 30.4 pg (27.0-31.0); Mean Corpuscular Volume 89.6 fL (78.0-98.0); Mean Platelet Volume 10.4 fL (7.4-10.4); Platelet Count 115 thou/uL (130-400); RBC Distribution Width 14.8 % (11.5-14.5); Red Blood Cell (RBC) Count 3.31 mill/uL (4.70-6.10)
[2021-03-17 03:43] LABS: Anion Gap 8 mmol/L (10-20); BUN (Urea Nitrogen) 19 mg/dL (8.9-20.6); Calc. Creatinine Clearance 211 mL/min (70-130); Carbon Dioxide 29 mmol/L (22-29); Chloride 102 mmol/L (98-107); Glucose 113 mg/dL (70-105); Potassium 4.3 mmol/L (3.5-5.1); Sodium 135 mmol/L (136-145)
[2021-03-17] MEDS: methylPREDNISolone Sod Succ 40 MG VIAL IVP SCH ×3 (04:15→17:00)
[2021-03-17] MEDS: Metoclopramide HCl 10 MG/2 ML VIAL IVP SCH ×3 (04:15→14:35)
[2021-03-17] MEDS: Polyethylene Glycol 3350 17 GM Packet PO SCH (08:48)
[2021-03-17] MEDS: Senokot S 8.6-50 MG TAB PO SCH ×2 (08:48→20:36)
[2021-03-17] MEDS: Enoxaparin Sodium 40 MG/0.4 ML SYRINGE SC SCH (09:24)
[2021-03-17] MEDS: ALPRAZolam 1 MG TAB PO SCH ×3 (09:24→20:36)
[2021-03-17] MEDS: Pantoprazole 40 MG VIAL IVP SCH ×2 (09:24→20:36)
[2021-03-17] MEDS: Lantus 1000 UNITS/10 ML VIAL SC SCH ×2 (09:25→21:08)
[2021-03-17] MEDS ORDERED: Erythromycin Base 250 MG TAB PER TUBE SCH (17:00)
[2021-03-17] MEDS: Erythromycin 200 MG/5 ML Oral Suspension PER TUBE SCH (18:21)
[2021-03-18] MEDS: Albuterol Sulfate 2.5 mg/3 ml Neb NEB SCH ×6 (01:51→22:13)
[2021-03-18] MEDS: Erythromycin 200 MG/5 ML Oral Suspension PER TUBE SCH ×3 (02:49→17:39)
[2021-03-18 03:51] LABS: #Lymphocytes 0.4 thou/uL (1.20-3.40); #Monocytes 0.3 thou/uL (0.11-0.59); #Neutrophils 7.2 thou/uL (1.40-6.50); %Basophils 0.2 % (0.0-1.0); %Eosinophils 0.2 % (0.0-10.0); %Lymphocytes 5.4 % (21.0-51.0); %Monocytes 3.6 % (0.0-10.0); %Neutrophils 90.8 % (42.0-75.0); Hemoglobin 10.3 g/dL (14.0-18.0); Mean Corpuscular HGB CONC 33.7 g/dL (32.0-36.0); Mean Corpuscular Hemoglobin 29.9 pg (27.0-31.0); Mean Corpuscular Volume 88.8 fL (78.0-98.0); Mean Platelet Volume 10.6 fL (7.4-10.4); Platelet Count 108 thou/uL (130-400); Red Blood Cell (RBC) Count 3.45 mill/uL (4.70-6.10); White Blood Cell (WBC) Count 7.9 thou/uL (4.8-10.8)
[2021-03-18 03:58] LABS: Anion Gap 7 mmol/L (10-20); BUN (Urea Nitrogen) 16 mg/dL (8.9-20.6); Calc. Creatinine Clearance 222 mL/min (70-130); Calcium 8.8 mg/dL (7.8-10.44); Carbon Dioxide 27 mmol/L (22-29); Chloride 103 mmol/L (98-107); Glucose 123 mg/dL (70-105); Potassium 4.3 mmol/L (3.5-5.1); Sodium 133 mmol/L (136-145)
[2021-03-18] MEDS: Dexmedetomidine 1,000 MCG in Sodium Chloride 0.9% 250 ML 240 ML IVPB SCH (05:18)
[2021-03-18] MEDS: methylPREDNISolone Sod Succ 40 MG VIAL IVP SCH ×2 (05:18→17:38)
[2021-03-18] MEDS: Lorazepam 2 MG/ML VIAL SLOW IVP PRN ×2 (08:37→22:03)
[2021-03-18] MEDS: Pantoprazole 40 MG VIAL IVP SCH ×2 (09:50→20:22)
[2021-03-18] MEDS: ALPRAZolam 1 MG TAB PO SCH ×3 (09:50→20:22)
[2021-03-18] MEDS: Polyethylene Glycol 3350 17 GM Packet PO SCH (09:51)
[2021-03-18] MEDS: Senokot S 8.6-50 MG TAB PO SCH ×2 (09:51→21:05)
[2021-03-18] MEDS: Enoxaparin Sodium 40 MG/0.4 ML SYRINGE SC SCH (10:36)
[2021-03-18] MEDS: Lantus 1000 UNITS/10 ML VIAL SC SCH ×2 (10:40→21:04)
[2021-03-18] MEDS: guaiFENesin 200 MG TAB PO PRN (11:57)
[2021-03-18] MEDS: Fentanyl CADD 100 ML IV SCH (18:45)
[2021-03-19] MEDS: Albuterol Sulfate 2.5 mg/3 ml Neb NEB SCH ×6 (01:50→22:52)
[2021-03-19] MEDS: Erythromycin 200 MG/5 ML Oral Suspension PER TUBE SCH ×3 (02:58→17:33)
[2021-03-19] MEDS: Dexmedetomidine 1,000 MCG in Sodium Chloride 0.9% 250 ML 240 ML IVPB SCH (03:02)
[2021-03-19 04:29] LABS: #Lymphocytes 0.4 thou/uL (1.20-3.40); #Monocytes 0.3 thou/uL (0.11-0.59); #Neutrophils 5.8 thou/uL (1.40-6.50); %Eosinophils 0.4 % (0.0-10.0); %Monocytes 4.8 % (0.0-10.0); %Neutrophils 88.8 % (42.0-75.0); Hemoglobin 10.2 g/dL (14.0-18.0); Mean Corpuscular HGB CONC 33.7 g/dL (32.0-36.0); Mean Corpuscular Hemoglobin 30.5 pg (27.0-31.0); Mean Corpuscular Volume 90.6 fL (78.0-98.0); Platelet Count 119 thou/uL (130-400); Red Blood Cell (RBC) Count 3.33 mill/uL (4.70-6.10); White Blood Cell (WBC) Count 6.5 thou/uL (4.8-10.8)
[2021-03-19 04:47] LABS: Anion Gap 11 mmol/L (10-20); BUN (Urea Nitrogen) 17 mg/dL (8.9-20.6); Calc. Creatinine Clearance 204 mL/min (70-130); Calcium 8.8 mg/dL (7.8-10.44); Carbon Dioxide 26 mmol/L (22-29); Chloride 103 mmol/L (98-107); Glucose 164 mg/dL (70-105); Potassium 3.8 mmol/L (3.5-5.1); Sodium 136 mmol/L (136-145)
[2021-03-19] MEDS: methylPREDNISolone Sod Succ 40 MG VIAL IVP SCH (05:03)
[2021-03-19] MEDS: Insulin Regular 300 UNITS/3 ML VIAL SC PRN (05:03)
[2021-03-19] MEDS ORDERED: Senokot S 8.6-50 MG TAB ONE (09:13)
[2021-03-19] MEDS: ALPRAZolam 1 MG TAB PO SCH ×3 (09:26→20:05)
[2021-03-19] MEDS: Senokot S 8.6-50 MG TAB PO SCH ×2 (09:27→20:05)
[2021-03-19] MEDS: Pantoprazole 40 MG VIAL IVP SCH ×2 (09:27→20:06)
[2021-03-19] MEDS: Polyethylene Glycol 3350 17 GM Packet PO SCH (09:27)
[2021-03-19] MEDS: Enoxaparin Sodium 40 MG/0.4 ML SYRINGE SC SCH (09:28)
[2021-03-19] MEDS: Lantus 1000 UNITS/10 ML VIAL SC SCH ×2 (09:29→21:00)
[2021-03-19] MEDS: Fentanyl CADD 100 ML IV SCH (16:12)
[2021-03-20 00:27] VITALS: TEMP 98.2
[2021-03-20] MEDS: Erythromycin 200 MG/5 ML Oral Suspension PER TUBE SCH ×2 (02:30→10:00)
[2021-03-20] MEDS: Albuterol Sulfate 2.5 mg/3 ml Neb NEB SCH ×4 (03:01→15:17)
[2021-03-20 04:13] LABS: #Eosinphils 0.1 thou/uL (0.0-0.7); #Lymphocytes 1.1 thou/uL (1.20-3.40); #Monocytes 0.3 thou/uL (0.11-0.59); %Basophils 0.5 % (0.0-1.0); %Eosinophils 2.3 % (0.0-10.0); %Lymphocytes 23.3 % (21.0-51.0); %Neutrophils 66.9 % (42.0-75.0); Hemoglobin 10.2 g/dL (14.0-18.0); Mean Corpuscular HGB CONC 33.5 g/dL (32.0-36.0); Mean Corpuscular Hemoglobin 29.9 pg (27.0-31.0); Mean Corpuscular Volume 89.3 fL (78.0-98.0); Mean Platelet Volume 10.4 fL (7.4-10.4); Platelet Count 98 thou/uL (130-400); RBC Distribution Width 15.1 % (11.5-14.5); White Blood Cell (WBC) Count 4.6 thou/uL (4.8-10.8)
[2021-03-20 04:31] LABS: Anion Gap 10 mmol/L (10-20); BUN (Urea Nitrogen) 15 mg/dL (8.9-20.6); Calc. Creatinine Clearance 213 mL/min (70-130); Calcium 8.5 mg/dL (7.8-10.44); Carbon Dioxide 27 mmol/L (22-29); Chloride 105 mmol/L (98-107); Glucose 105 mg/dL (70-105); Potassium 3.5 mmol/L (3.5-5.1); Sodium 138 mmol/L (136-145)
[2021-03-20] MEDS: Dexmedetomidine 1,000 MCG in Sodium Chloride 0.9% 250 ML 240 ML IVPB SCH ×2 (07:44→08:16)
[2021-03-20] MEDS: Potassium Chloride 40 MEQ in Premix Bag 1 BAG IVPB SCH ×2 (07:44→08:50)
[2021-03-20] MEDS ORDERED: Potassium Chloride 40 MEQ in Sodium Chloride 0.9% 250 ML 250 ML IVPB SCH (08:00)
[2021-03-20] MEDS: ALPRAZolam 1 MG TAB PO SCH ×2 (08:25→14:31)
[2021-03-20] MEDS: Pantoprazole 40 MG VIAL IVP SCH (08:25)
[2021-03-20] MEDS: Senokot S 8.6-50 MG TAB PO SCH (08:25)
[2021-03-20] MEDS: Enoxaparin Sodium 40 MG/0.4 ML SYRINGE SC SCH (08:25)
[2021-03-20] MEDS: Polyethylene Glycol 3350 17 GM Packet PO SCH (08:25)
[2021-03-20] MEDS: Lantus 1000 UNITS/10 ML VIAL SC SCH ×2 (08:26→09:22)
[2021-03-20] MEDS ORDERED: methylPREDNISolone Sod Succ 40 MG VIAL IVP SCH (09:00)
[2021-03-20 11:11] VITALS: BP 129/80
[2021-03-20] MEDS: guaiFENesin 200 MG TAB PO PRN ×2 (11:30→17:08)
[2021-03-20 14:01] VITALS: BMI 29.4
== END 2021-03-20 17:52 | DRG 4 ==
LOC: EDBD 09:40 → ERS 09:40 → ERHOLD 11:51 → CCU 18:17 → 2SW 19:10 → CCU 02-07 00:31
PROVIDERS: ADMIT Internal Medicine; ATTEND Family Medicine
PROC: 8E0ZXY6 Isolation (ICD-10-PCS; principal; 2021-02-06)
PROC: 3E0333Z Introduction of Anti-inflammatory into Peripheral Vein, Percutaneous Approach (ICD-10-PCS; 2021-02-06)
PROC: 5A1955Z Respiratory Ventilation, Greater than 96 Consecutive Hours (ICD-10-PCS; 2021-02-07)
PROC: 0D9670Z Drainage of Stomach with Drainage Device, Via Natural or Artificial Opening (ICD-10-PCS; 2021-02-07)
PROC: 0BH17EZ Insertion of Endotracheal Airway into Trachea, Via Natural or Artificial Opening (ICD-10-PCS; 2021-02-07)
PROC: XW0DXM6 Introduction of Baricitinib into Mouth and Pharynx, External Approach, New Technology Group 6 (ICD-10-PCS; 2021-02-07)
PROC: 0BJ08ZZ Inspection of Tracheobronchial Tree, Via Natural or Artificial Opening Endoscopic (ICD-10-PCS; 2021-02-13)
PROC: 0B110F4 Bypass Trachea to Cutaneous with Tracheostomy Device, Open Approach (ICD-10-PCS; 2021-02-26)
PROC: 0DH63UZ Insertion of Feeding Device into Stomach, Percutaneous Approach (ICD-10-PCS; 2021-02-26)
PROC: 3E033XZ Introduction of Vasopressor into Peripheral Vein, Percutaneous Approach (ICD-10-PCS; 2021-03-15)
DX: A41.89 Other specified sepsis (principal); U07.1 COVID-19; J12.82 Pneumonia due to coronavirus disease 2019; J80 Acute respiratory distress syndrome; J15.212 Pneumonia due to Methicillin resistant Staphylococcus aureus; E87.1 Hypo-osmolality and hyponatremia; T85.628A Displacement of other specified internal prosthetic devices, implants and grafts, initial encounter; K56.7 Ileus, unspecified; E46 Unspecified protein-calorie malnutrition; Z99.11 Dependence on respirator [ventilator] status; D69.6 Thrombocytopenia, unspecified; R56.9 Unspecified convulsions; Y84.8 Other medical procedures as the cause of abnormal reaction of the patient, or of later complication, without mention of misadventure at the time of the procedure; K59.00 Constipation, unspecified; F32.A Depression, unspecified; R00.1 Bradycardia, unspecified; T42.6X5A Adverse effect of other antiepileptic and sedative-hypnotic drugs, initial encounter; F41.9 Anxiety disorder, unspecified; R65.20 Severe sepsis without septic shock; E66.9 Obesity, unspecified; K31.89 Other diseases of stomach and duodenum; K66.8 Other specified disorders of peritoneum; E87.6 Hypokalemia; J98.2 Interstitial emphysema; D64.9 Anemia, unspecified; G93.81 Temporal sclerosis; E87.5 Hyperkalemia; Z68.29 Body mass index [BMI] 29.0-29.9, adult
CPT/HCPCS: 0240U; 36415; 36416; 36600; 71045; 71260; 74018; 74019; 74177; 80048; 80053; 80074; 80076; 80202; 80306; 80307; 81001; 81003; 82728; 82805; 83605; 83735; 84100; 84145; 85007; 85025; 85027; 85379; 85652; 86140; 87040; 87070; 87077; 87086; 87149; 87186; 87205; 87449; 93005; 94002; 94003; 94640; 94660; 94760; 96374; A4217; C1713; C9113; J0456; J0610; J1100; J1650; J1815; J1940; J1953; J1956; J2060; J2185; J2212; J2248; J2250; J2270; J2543; J2704; J2765; J2920; J2930; J3010; J3370; J3475; J3480; J3490; J7050; J7120; J7512; J7611; Q9967; S0020